=== PATIENT | female | born 1995 | race Caucasian/White ===

== ENCOUNTER 2020-06-28 09:32 | Observation (INO) | payer BC ==
[2020-06-28 10:34] VITALS: BP 133/94; PULSE 107
[2020-06-28 10:40] LABS: Absolute Neutrophil Ct (ANC) 6.51 (1.4-6.9); BASOPHIL % 0.1 % (0.0-0.4); Basophil (Absolute #) 0.01 (0-0.4); Eosinophil % 0.6 % (0.00-5.0); Eosinophil (Absolute #) 0.05 (0-0.5); Hematocrit 36.2 % (35-47); Hemoglobin 11.9 gm/dl (12.0-16.0); Lymphocyte (Absolute #) 1.42 (1.0-4.6); Lymphocytes % 16.4 % (24.0-44.0); Mean Cell Volume 88.3 fl (78-100); Mean Corpuscular Hgb Concent. 32.9 g/dl (32-36); Mean Platelet Volume 10.9 fl (7.5-11.0); Monocyte (Absolute #) 0.66 (0.0-1.3); Monocytes % 7.6 % (0.0-12.0); Neutrophil % 75.3 % (36.0-66.0); Platelet Count 171 K/mm3 (150-450); Red Cell Distribution Width 13.3 % (11.5-14.0); White Blood Count 8.7 K/mm3 (4.0-10.5)
[2020-06-28 11:06] LABS: ALBUMIN 3.7 g/dL (3.5-5.0); ALKALINE PHOSPHATASE 75 U/L (38-126); ANION GAP 9.2 MEQ/L (5-15); BLOOD UREA NITROGEN 7 mg/dL (7-17); CHLORIDE 107 mmol/L (98-107); Calcium 9.4 mg/dL (8.4-10.2); Carbon Dioxide 22 mmol/L (22-30); Creatinine 1 0.52 mg/dL (0.52-1.04); EST GLOMERULAR FILTRATION RATE > 60.0 ML/MIN; Glucose 109 mg/dL (74-106); Potassium 3.9 mmol/L (3.5-5.1); SGOT/AST 20 U/L (14-36); SGPT/ALT 13 U/L (0-35); SODIUM 134 mmol/L (137-145); Total Protein 7.1 g/dL (6.3-8.2)
[2020-06-28 17:54] LABS: Creatinine, Urine Random 160.8 mg/dl (30-125)
== END 2020-06-28 11:50 | disposition home or self-care (01) ==
LOC: WHC 09:32 → OB 09:56
PROVIDERS: ADMIT Obstetrics & Gynecology; ATTEND Obstetrics & Gynecology
DX: O13.3 Gestational [pregnancy-induced] hypertension without significant proteinuria, third trimester (principal); Z3A.35 35 weeks gestation of pregnancy
CPT/HCPCS: 36415; 59025; 80053; 82570; 84156; 84550; 85025; 87081; G0378; 59425; 81002

== ENCOUNTER 2020-06-30 10:38 | Inpatient (IN) | payer BC ==
[2020-06-30 11:38] LABS: Appearance CLEAR (CLEAR); Bilirubin NEGATIVE (NEGATIVE); Blood NEGATIVE Ery/ul (0-5); Epithelial Cells RARE /HPF (FEW); Glucose NEGATIVE (NEGATIVE); Ketones NEGATIVE (NEGATIVE); Leukocyte Esterase NEGATIVE (NEGATIVE); Nitrite NEGATIVE (NEGATIVE); Protein,Urine Dip NEGATIVE (Negative); Specific Gravity 1.002 (1.005-1.025); Urobilinogen NEGATIVE mg/dL (0-1)
[2020-06-30 11:40] LABS: Bacteria NONE SEEN /HPF (NEGATIVE); WBC NONE SEEN /HPF (0-5)
[2020-06-30 12:06] LABS: Amphetamine,Urine NEGATIVE (NEGATIVE); Barbiturate,Urine NEGATIVE (NEGATIVE); Benzodiazepine,Urine NEGATIVE (NEGATIVE); Cocaine,Urine NEGATIVE (NEGATIVE); Methadone,Urine NEGATIVE (NEGATIVE); Opiate,Urine NEGATIVE (NEGATIVE); PCP,Urine NEGATIVE (NEGATIVE); THC,Urine NEGATIVE (NEGATIVE)
[2020-06-30 12:15] LABS: Absolute Neutrophil Ct (ANC) 5.84 (1.4-6.9); BASOPHIL % 0.1 % (0.0-0.4); Basophil (Absolute #) 0.01 (0-0.4); Eosinophil % 0.4 % (0.00-5.0); Eosinophil (Absolute #) 0.03 (0-0.5); Hematocrit 37.5 % (35-47); Hemoglobin 12.2 gm/dl (12.0-16.0); Lymphocyte (Absolute #) 1.29 (1.0-4.6); Lymphocytes % 16.5 % (24.0-44.0); Mean Cell Volume 88.7 fl (78-100); Mean Corpuscular Hemoglobin 28.8 pg (26-32); Mean Corpuscular Hgb Concent. 32.5 g/dl (32-36); Mean Platelet Volume 10.7 fl (7.5-11.0); Monocyte (Absolute #) 0.65 (0.0-1.3); Monocytes % 8.3 % (0.0-12.0); Neutrophil % 74.7 % (36.0-66.0); Platelet Count 177 K/mm3 (150-450); Red Blood Count 4.23 M/mm3 (4.1-5.4); Red Cell Distribution Width 13.4 % (11.5-14.0); White Blood Count 7.8 K/mm3 (4.0-10.5)
[2020-06-30 12:35] LABS: ALBUMIN 3.7 g/dL (3.5-5.0); ALKALINE PHOSPHATASE 83 U/L (38-126); BLOOD UREA NITROGEN 9 mg/dL (7-17); Calcium 9.3 mg/dL (8.4-10.2); Carbon Dioxide 24 mmol/L (22-30); Creatinine 1 0.56 mg/dL (0.52-1.04); EST GLOMERULAR FILTRATION RATE > 60.0 ML/MIN; Glucose 84 mg/dL (74-106); Potassium 4.2 mmol/L (3.5-5.1); SGOT/AST 19 U/L (14-36); SGPT/ALT 12 U/L (0-35); SODIUM 135 mmol/L (137-145); Total Protein 7.1 g/dL (6.3-8.2); Uric Acid 3.6 mg/dL (2.6-6.0)
[2020-06-30 12:36] LABS: CHLORIDE 106 mmol/L (98-107)
[2020-06-30 12:39] LABS: Creatinine, Urine Random 19.1 mg/dl (30-125)
[2020-06-30 12:41] LABS: ANION GAP 9.2 MEQ/L (5-15)
[2020-06-30] MEDS: TYLENOL EXTRA STRENGTH 500 MG PO PRN (13:55)
[2020-06-30] MEDS ORDERED: STADOL 2 MG IV ONE (16:01)
[2020-06-30] MEDS ORDERED: SOD CITRATE-CITRIC ACID SOLN PO ONE (18:50)
[2020-06-30] MEDS ORDERED: Lactated Ringers 1,000 ML IV ONE (18:50)
[2020-06-30] MEDS ORDERED: Lactated Ringers 1,000 ML IV SCH (19:00)
[2020-06-30] MEDS ORDERED: Pepcid 20 MG VIAL IV SCH (19:00)
[2020-06-30] MEDS ORDERED: Reglan 10 MG/2 ML IV SCH (19:00)
[2020-06-30] MEDS ORDERED: CEFAZOLIN 2 GM-D5W BAG** 2 GM/50 ML ML IV SCH (19:00)
[2020-06-30 19:31] LABS: INR 1.05 (0.8-3.0); PROTIME 11.9 SECONDS (9.95-12.35)
[2020-06-30 19:34] LABS: PTT 23.1 SECONDS (25.3-37.0)
[2020-06-30] MEDS: Lactated Ringers 1,000 ML IV SCH (19:34)
[2020-06-30] MEDS: Magnesium Sulfate 40 Gm/1000 Ml H2O Premix*** 1,000 ML IV SCH (19:34)
[2020-06-30] MEDS ORDERED: Celestone Soluspan 6MG/ML IM ONE (19:53)
[2020-06-30] MEDS ORDERED: BRETHINE 1 MG/ML SQ PRN (20:27)
[2020-06-30] MEDS ORDERED: PITOCIN 30 UNITS/ LR 500 ML 30 UNITS/500 ML IV.SOLN. IV SCH (20:30)
[2020-06-30 20:46] LABS: Appearance CLEAR (CLEAR); Bilirubin NEGATIVE (NEGATIVE); Blood NEGATIVE Ery/ul (0-5); Glucose NEGATIVE (NEGATIVE); Ketones NEGATIVE (NEGATIVE); Leukocyte Esterase NEGATIVE (NEGATIVE); Nitrite NEGATIVE (NEGATIVE); Protein,Urine Dip NEGATIVE (Negative); Specific Gravity 1.004 (1.005-1.025); Urobilinogen NEGATIVE mg/dL (0-1)
[2020-06-30] MEDS: Tums EX 750 MG PO PRN (21:31)
[2020-07-01] MEDS ORDERED: XYLOCAINE 1% HCL 20 ML MDV IJ PRN (05:07)
[2020-07-01] MEDS: Lactated Ringers 1,000 ML IV SCH ×3 (05:12→20:56)
[2020-07-01] MEDS: TYLENOL EXTRA STRENGTH 500 MG PO PRN ×2 (05:12→21:38)
[2020-07-01] MEDS: Tums EX 750 MG PO PRN ×2 (05:13→21:44)
[2020-07-01] MEDS ORDERED: PITOCIN 30 UNITS/ LR 500 ML 30 UNITS/500 ML IV.SOLN. IV SCH (05:30)
[2020-07-01] MEDS ORDERED: Ephedrine Sulfate 50 MG/ML IV PRN (08:36)
[2020-07-01] MEDS ORDERED: OB EPIDURAL NAROPIN/SUFENTANIL IN NACL EPIDURAL PRN (08:36)
[2020-07-01] MEDS ORDERED: FLUZONE QUAD 2020-2021 SYRINGE IM ONE (12:00)
[2020-07-01] MEDS ORDERED: Mylicon 80MG PO PRN (14:07)
[2020-07-01] MEDS ORDERED: LANSINOH 40 GM TOP PRN (14:07)
[2020-07-01] MEDS ORDERED: TUCKS TP PRN (14:07)
[2020-07-01] MEDS ORDERED: Dermoplast Spray TP PRN (14:07)
[2020-07-01] MEDS: Magnesium Sulfate 40 Gm/1000 Ml H2O Premix*** 1,000 ML IV SCH (15:01)
[2020-07-01] MEDS: MOTRIN 400 MG PO PRN (20:15)
[2020-07-01] MEDS ORDERED: Colace 100 MG ONE (21:34)
[2020-07-01] MEDS: Colace 100 MG PO SCH (21:42)
[2020-07-02] MEDS: MOTRIN 400 MG PO PRN ×2 (02:06→20:22)
[2020-07-02] MEDS: Tums EX 750 MG PO PRN (02:07)
[2020-07-02 07:18] LABS: Absolute Neutrophil Ct (ANC) 6.83 (1.4-6.9); BASOPHIL % 0.1 % (0.0-0.4); Basophil (Absolute #) 0.01 (0-0.4); Eosinophil % 0.4 % (0.00-5.0); Eosinophil (Absolute #) 0.04 (0-0.5); Hematocrit 35.5 % (35-47); Hemoglobin 11.3 gm/dl (12.0-16.0); Lymphocytes % 20.6 % (24.0-44.0); Mean Corpuscular Hgb Concent. 31.8 g/dl (32-36); Mean Platelet Volume 10.9 fl (7.5-11.0); Monocyte (Absolute #) 0.83 (0.0-1.3); Monocytes % 8.5 % (0.0-12.0); Neutrophil % 70.4 % (36.0-66.0); Platelet Count 160 K/mm3 (150-450); Red Cell Distribution Width 13.6 % (11.5-14.0); White Blood Count 9.7 K/mm3 (4.0-10.5)
[2020-07-02] MEDS: TYLENOL EXTRA STRENGTH 500 MG PO PRN (08:46)
[2020-07-02] MEDS: FERREX 150 PO SCH (09:00)
[2020-07-02] MEDS: Colace 100 MG PO SCH ×2 (09:00→22:16)
--- NOTE | 2020-07-02 09:26 | PCM.NOTE ---
Date and Time: 07/02/20921 Subjective Assessment: ppd 1 pt resting in bed and doing well states occasional feeling foggy however denies headache at this time. pt currently on mgso4. pt noted having labile bp vss afebrile abd; soft uterus; firm lochia; mild ext; no clubbing cyanosis or edema a/p sp ppd 1 with preeclampsia with severe feature will discontinue mgso4 at noon today will continue monitor bp will consider starting on bp medication if bp 160/100 will anticipate discharge tomorrow OBJECTIVE DATA Vital Signs: Vital Signs - 24 hr Temp Pulse Resp BP BP Pulse Ox 07/02/20 07:00 78 98/57 07/02/20 06:00 72 113/68 07/02/20 05:00 100 H 101/55 07/02/20 04:00 77 98/53 07/02/20 03:00 77 122/75 07/02/20 02:00 97.9 F 82 20 125/81 125/81 98 07/02/20 01:00 91 H 127/64 07/02/20 00:00 82 99/52 07/01/20 23:00 82 124/79 07/01/20 22:00 91 H 122/74 07/01/20 21:00 93 H 123/75 07/01/20 20:00 98.4 F 93 H 18 141/87 141/87 98 07/01/20 19:00 101 H 129/77 07/01/20 18:00 108 H 132/79 07/01/20 17:00 110 H 143/83 07/01/20 16:00 108 H 18 106/55 106/55 07/01/20 15:05 98.2 F 118 H 18 112/68 07/01/20 15:00 118 H 112/68 07/01/20 14:05 111 H 18 122/69 07/01/20 14:00 111 H 18 122/69 122/69 07/01/20 13:50 109 H 18 122/60 07/01/20 13:35 118 H 18 123/57 07/01/20 13:30 117 H 18 136/66 07/01/20 13:15 112 H 18 105/56 07/01/20 13:00 96 H 18 105/56 07/01/20 12:45 103 H 18 100 07/01/20 12:30 107 H 18 99 07/01/20 12:15 102 H 18 97/53 07/01/20 12:00 101 H 18 105/52 07/01/20 11:45 108 H 18 112/58 100 07/01/20 11:30 101 H 18 97 07/01/20 11:15 95 H 18 118/58 98 07/01/20 11:00 99 H 18 102/53 99 07/01/20 10:45 88 18 104/56 99 07/01/20 10:30 91 H 18 99 07/01/20 10:15 89 18 109/58 99 07/01/20 10:00 89 18 109/58 99 07/01/20 09:45 102 H 18 102/58 99 07/01/20 09:30 93 H 18 133/80 99 Pain Assessment - Last Documented Pain Intensity [Anterior/ 6 Posterior] Pain Intensity 4 Pain Scale Used 0-10 Pain Scale Intake and Output: Intake & Output 06/29/20 06/30/20 07/01/20 07/02/20 11:59 11:59 11:59 11:59 Intake Total 3752 5246 Output Total 5673 7100 Balance -1873 -1854 Weight 97.976 kg 97.976 kg Lab Results: Lab Results-Last 24 Hours 07/01/20 07/01/20 07/02/20 Range/Units 13:00 19:15 01:13 WBC (4.0-10.5) K/mm3 RBC (4.1-5.4) M/mm3 Hgb (12.0-16.0) gm/dl Hct (35-47) % MCV (78-100) fl MCH (26-32) pg MCHC (32-36) g/dl RDW (11.5-14.0) % Plt Count (150-450) K/mm3 MPV (7.5-11.0) fl Gran % (36.0-66.0) % Eos # (Auto) (0-0.5) Absolute Lymphs (auto) (1.0-4.6) Absolute Monos (auto) (0.0-1.3) Lymphocytes % (24.0-44.0) % Monocytes % (0.0-12.0) % Eosinophils % (0.00-5.0) % Basophils % (0.0-0.4) % Absolute Granulocytes (1.4-6.9) Basophils # (0-0.4) Magnesium 5.2 H* 4.8 H 4.9 H (1.6-2.3) mg/dL 07/02/20 07/02/20 Range/Units 07:17 07:17 WBC 9.7 (4.0-10.5) K/mm3 RBC 3.90 L (4.1-5.4) M/mm3 Hgb 11.3 L (12.0-16.0) gm/dl Hct 35.5 (35-47) % MCV 91.0 (78-100) fl MCH 29.0 (26-32) pg MCHC 31.8 L (32-36) g/dl RDW 13.6 (11.5-14.0) % Plt Count 160 (150-450) K/mm3 MPV 10.9 (7.5-11.0) fl Gran % 70.4 H (36.0-66.0) % Eos # (Auto) 0.04 (0-0.5) Absolute Lymphs (auto) 2.00 (1.0-4.6) Absolute Monos (auto) 0.83 (0.0-1.3) Lymphocytes % 20.6 L (24.0-44.0) % Monocytes % 8.5 (0.0-12.0) % Eosinophils % 0.4 (0.00-5.0) % Basophils % 0.1 (0.0-0.4) % Absolute Granulocytes 6.83 (1.4-6.9) Basophils # 0.01 (0-0.4) Magnesium 5.2 H* (1.6-2.3) mg/dL Multi-Disciplinary Progress Notes: Multi-Disciplinary Progress Notes 07/01/20 14:07 Respiratory Note by Iliana Kearns 20 MIN POST DELIVERY CALLED BACK TO [facility] , STARTED TO RETRACT. PPV WITH 21 5 O2 GIVEN PERIDOCALLY OVER NEXT 15 MIN. PT WOB GREATLY IMPROVED Initialized on 07/01/20 14:07 - END OF NOTE
[2020-07-02] MEDS ORDERED: Adacel Vial IM ONE (12:00)
[2020-07-03] MEDS: TYLENOL EXTRA STRENGTH 500 MG PO PRN (00:48)
[2020-07-03] MEDS: Tums EX 750 MG PO PRN (00:49)
--- NOTE | 2020-07-03 07:55 | PCM.NOTE ---
Date and Time: 07/03/20 0753 Subjective Assessment: ppd 2 pt resting in bed and doing well without issue or complaints. denies crane or visual disturbance vss afebrile abd; soft uterus; firm lochia; mild a/p sp ppd 2 dc home today fu office 2 wks for eval of bp OBJECTIVE DATA Vital Signs: Vital Signs - 24 hr Temp Pulse Resp BP BP Pulse Ox 07/03/20 04:00 98.7 F 65 16 123/80 99 07/03/20 02:00 97.9 F 66 18 120/79 99 07/02/20 20:00 98.5 F 72 20 122/82 99 07/02/20 14:20 98.2 F 83 18 135/84 99 07/02/20 11:00 92 H 127/83 07/02/20 10:00 99 H 131/77 07/02/20 09:00 91 H 149/90 07/02/20 08:00 98.1 F 84 18 176/83 176/83 99 Pain Assessment - Last Documented Pain Intensity [Anterior/ 5 Posterior] Pain Intensity 5 Pain Scale Used 0-10 Pain Scale Intake and Output: Intake & Output 06/30/20 07/01/20 07/02/20 07/03/20 11:59 11:59 11:59 11:59 Intake Total 3752 5606 1850 Output Total 5622 8400 Balance -4155 -5444 1850 Weight 97.976 kg 97.976 kg Lab Results: Lab Results-Last 24 Hours 07/02/20 Range/Units 07:17 Magnesium 5.2 H* (1.6-2.3) mg/dL
--- NOTE | 2020-07-03 08:00 | PCM.DS ---
Discharge Summary Date of Admission: 06/30/20 10:38 Date of Discharge: jul 03, 2020 Admitting Physician: ANANTH MONSIVAIS DO Consults: Consults on Case 06/30/20 18:51 Notify Physician OF ADMISSION 06/30/20 19:04 Notify Physician ROUTINE Primary Care Provider: STEF BOWDEN Allergies Allergies No Known Drug Allergies Allergy (Verified 06/30/20 21:45) Hospital Summary - Hospital Course Hospital Course: pt noted being 36 wks and had co severe headache starting in the am 10/10 in severity not relieved with extra strength tylenol associated with vomiting and visual disturbance. presented to labor and delivery and pi labs drawn and was noted having elevated prot/cr ratio of .73 compared to being .04 two days prior. all other labs were normal. pt was given stadol 1mg dose and after several hours had continued severe headache. [facility] [place] and it was determined that if continued headache that she should be delivered at this time. pt was subsequently started on pitocin and delivered live baby girl on jul 01 without complication. pt had mgso4 started prior to delivery and was exteded to 24 hours after delivery. during period, pt did well and only had one elevation of bp. at this time all labs were normal and pt at this time stable for discharge. pt was advised to fu in office in 2 wks for bp check. all questions answered to her satisfaction. - Vitals & Intake/Output Vital Signs: Vital Signs Temperature 98.7 F 07/03/20 04:00 Pulse Rate 65 07/03/20 04:00 Respiratory Rate 16 07/03/20 04:00 Blood Pressure 123/80 07/03/20 04:00 O2 Sat by Pulse Oximetry 99 07/03/20 04:00 Intake & Output: Intake & Output 06/30/20 07/01/20 07/02/20 07/03/20 11:59 11:59 11:59 11:59 Intake Total 3756 5606 1850 Output Total 5688 8400 Balance -3873 -2795 1850 Weight 97.976 kg 97.976 kg - Lab Result Diagrams: 07/02/20 07:17 06/30/20 12:10 Lab Results-Last 24 Hrs: Lab Results-Last 24 Hours 07/02/20 Range/Units 07:17 Magnesium 5.2 H* (1.6-2.3) mg/dL Micro Results-Entire Visit: Microbiology 06/30/20 20:30 Urine Culture - Final Catherized NO GROWTH - Procedures and Test Procedures and Tests throughout Hospitalization: Therapy Orders & Screens 07/01/20 13:39 Standby ROUTINE Comment: Diagnosis: pre eclampsia - Discharge Disposition: Home, Self-Care Condition: Stable Prescriptions: No Action Metformin HCl 500 mg [Glucophage 500 MG] 500 mg PO BID Aspirin [Aspirin EC] 81 mg PO DAILY Vits W-Ca,Fe,FA(<1Mg) [] 1 tab PO DAILY Follow up with: STEF BOWDEN [Primary Care Provider] -
--- NOTE | 2020-07-03 08:01 | PCM.DCORD ---
- Discharge Discharge Date: 07/03/20 Disposition: Home, Self-Care Condition: Stable Prescriptions: No Action Metformin HCl 500 mg [Glucophage 500 MG] 500 mg PO BID Aspirin [Aspirin EC] 81 mg PO DAILY Vits W-Ca,Fe,FA(<1Mg) [] 1 tab PO DAILY Follow up with: STEF BOWDEN [Primary Care Provider] - ANANTH MONSIVAIS DO [ACTIVE STAFF] - 2 weeks (should fu in office in 2 wks for bp check preeclmapsia precuations given to pt)
[2020-07-03] MEDS: MOTRIN 400 MG PO PRN (08:16)
[2020-07-03] MEDS: FERREX 150 PO SCH (09:27)
[2020-07-03] MEDS: Colace 100 MG PO SCH (09:29)
[2020-07-03 11:38] VITALS: BP 118/77; PULSE 73; O2SAT 98
== END 2020-07-03 14:35 | disposition home or self-care (01) | DRG 807 ==
LOC: OB 10:38 → OBSVTOIN 10:38
PROVIDERS: ADMIT Obstetrics & Gynecology; ATTEND Obstetrics & Gynecology
PROC: 10E0XZZ Delivery of Products of Conception, External Approach (ICD-10-PCS; principal; 2020-07-01)
DX: O14.14 Severe pre-eclampsia complicating childbirth (principal); Z37.0 Single live birth; Z3A.36 36 weeks gestation of pregnancy
CPT/HCPCS: 36415; 59400; 80053; 80307; 81001; 81003; 82570; 83735; 84156; 84550; 85025; 85610; 85730; 87086; 90471; 90715; 94799; G0378; J0595; J0702; J2590; J2795; A9270-GY

== ENCOUNTER 2021-06-11 16:46 | Emergency (ER) | payer BC ==
[2021-06-11 18:38] LABS: Absolute Neutrophil Ct (ANC) 5.61 (1.4-6.9); BASOPHIL % 0.1 % (0.0-0.4); Basophil (Absolute #) 0.01 (0-0.4); Eosinophil % 0.8 % (0.00-5.0); Eosinophil (Absolute #) 0.07 (0-0.5); Hematocrit 35.3 % (35-47); Hemoglobin 11.9 gm/dl (12.0-16.0); Mean Cell Volume 87.4 fl (78-100); Mean Corpuscular Hemoglobin 29.5 pg (26-32); Mean Corpuscular Hgb Concent. 33.7 g/dl (32-36); Mean Platelet Volume 9.6 fl (7.5-11.0); Monocyte (Absolute #) 0.67 (0.0-1.3); Monocytes % 8.1 % (0.0-12.0); Platelet Count 205 K/mm3 (150-450); Red Blood Count 4.04 M/mm3 (4.1-5.4); Red Cell Distribution Width 12.4 % (11.5-14.0); White Blood Count 8.3 K/mm3 (4.0-10.5)
--- NOTE | 2021-06-11 18:41 | ERPHSYRPT ---
- History of Present Illness Time Seen by Provider: 06/11/21 17:55 Source: patient Exam Limitations: no limitations Patient Subjective Stated Complaint: PT HERE FOR LOWER BACK PAIN THAT GOES TO HIPS SINCE YESTERDAY AT 1200.SHE WENT TO COVERED BRIDGE AND WALKED AROUND, SHE PASSED A CLOT YESTERDAY AND HAD SOME SPOTTING TODAY, SHE IS 13 WEEKS . 4 PARA 2 Triage Nursing Assessment: PT ALERT, WALKED IN, RESP EASY, SKIN W/P/D , FACE MA SK IN PLACE, ABD SOFT, Physician History: Patient is a 25-year-old female G5, P2 M2 currently 13 weeks presents to our ED for evaluation of low back pain that radiates to her hip. Patient states that she was ambulating yesterday and later observed a blood clot passed in her vagina. The blood clot was mixed with mucus which she believes may have been a mucous plug. No trauma. No fever. No nausea or vomiting. No diarrhea. No rash. Symptoms are mild to moderate in intensity. No specific worsening improving factors. Patient called her OB physician regarding her concerns and office staff directed patient to come to our ED for evaluation. Patient is ot [facility] healthy. She voices no other complaints or concerns at this time. Timing/Duration: yesterday Severity: moderate Modifying Factors: Improves With: nothing Associated Symptoms: denies symptoms Allergies/Adverse Reactions: No Known Drug Allergies Allergy (Verified 06/30/20 21:45) Home Medications: Aspirin [Aspirin EC] 81 mg PO DAILY 06/28/20 [History] Metformin HCl 500 mg [Glucophage 500 MG] 500 mg PO BID 06/28/20 [History] Vits W-Ca,Fe,FA(<1Mg) [] 1 tab PO DAILY 06/28/20 [History] Hx Influenza Vaccination/Date Given: No Hx Pneumococcal Vaccination/Date Given: No Immunizations Up to Date: Yes Travel Risk - International Travel Have you traveled outside of the country in past 3 weeks: No - Coronavirus Screening Are you exhibiting any of the following symptoms?: No Close contact with a COVID-19 positive Pt in past 14-21 Days: No - Vaccine Status Have you recieved a Covid-19 vaccination: No - Review of Systems Constitutional: No Symptoms, No Fever, No Chills Eyes: No Symptoms Ears, Nose, & Throat: No Symptoms Respiratory: No Symptoms, No Cough, No Dyspnea Cardiac: No Symptoms, No Chest Pain, No Edema, No Syncope Abdominal/Gastrointestinal: No Symptoms, No Abdominal Pain, No Nausea, No V omiting, No Diarrhea Genitourinary Symptoms: No Symptoms, No Dysuria Musculoskeletal: No Symptoms, No Back Pain, No Neck Pain Skin: No Symptoms, No Rash Neurological: No Symptoms, No Dizziness, No Focal Weakness, No Sensory Changes Psychological: No Symptoms Endocrine: No Symptoms Hematologic/Lymphatic: No Symptoms Immunological/Allergic: No Symptoms All Other Systems: Reviewed and Negative - Past Medical History Pertinent Past Medical History: Yes Neurological History: Seizures ENT History: No Pertinent History Cardiac History: No Pertinent History Respiratory History: No Pertinent History Endocrine Medical History: No Pertinent History Musculoskeletal History: Fractures, Other GI Medical History: No Pertinent History History: No Pertinent History Female Reproductive Disorders: Other Other Medical History: R stress fracture of the proximal tibia RIGHT ANKLE AND PLATE AND 10 SCREWS RIGHT KNEE SURGERY. 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 ABDNORML PAP AND WENT AND DID LEAP PROCEDURE 2010 OR 2011. LABOR, LAST - Past Surgical History Past Surgical History: Yes Neuro Surgical History: No Pertinent History Cardiac: No Pertinent History Respiratory: No Pertinent History Gastrointestinal: No Pertinent History Musculoskeletal: Other Female Surgical History: Other Other Surgical History: R stress fracture of the proximal tibia RIGHT ANKLE AND PLATE AND 10 SCREWS RIGHT KNEE SURGERY. 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 ABDNORML PAP AND WENT AND DID LEAP PROCEDURE 2010 OR 2011 - Social History Smoking Status: Never smoker Exposure to second hand smoke: No Drug Use: none Patient Lives Alone: No - Female History Hx Last Menstrual Period: MARCH 07 Hx Now: Yes Expected Date of Delivery: 12/15/21 - Nursing Vital Signs Nursing Vital Signs: Initial Vital Signs Temperature 97.3 F 06/11/21 17:48 Pulse Rate 85 06/11/21 17:48 Blood Pressure 118/85 06/11/21 17:48 O2 Sat by Pulse Oximetry 99 06/11/21 17:48 Pain Scale Pain Intensity 0 - Physical Exam General Appearance: no apparent distress, alert Eye Exam: PERRL/EOMI, eyes nml inspection Ears, Nose, Throat Exam: normal ENT inspection, TMs normal, pharynx normal, moist mucous membranes Neck Exam: normal inspection, non-tender, supple, full range of motion Respiratory Exam: normal breath sounds, lungs clear, airway intact, No respiratory distress Cardiovascular Exam: regular rate/rhythm, normal heart sounds, normal peripheral pulses Gastrointestinal/Abdomen Exam: soft, normal bowel sounds, No tenderness, No mass Pelvic Exam: normal external exam, other (No foul odor.), No adnexal tenderness, No adnexal mass, No cervical motion tenderness, No vaginal bleeding, No uterine tenderness, No vaginal discharge Back Exam: normal inspection, normal range of motion, No CVA tenderness, No vertebral tenderness Extremity Exam: normal inspection, normal range of motion, pelvis stable Neurologic Exam: alert, oriented x 3, cooperative, normal mood/affect, nml cerebellar function, nml station & gait, sensation nml, No motor deficits Skin Exam: normal color, warm, dry, No rash Lymphatic Exam: No adenopathy SpO2 Interpretation: normal SpO2: 99 O2 Delivery: Room Air Ordered Tests: Active Orders 24 hr Category Date Time Status OB LIMITED [US] Stat Exams 06/11/21 19:29 Taken CBC W DIFF Stat Lab 06/11/21 18:19 Completed CMP Stat Lab 06/11/21 18:30 Completed HCG, Quantitative (Inhouse) Stat Lab 06/11/21 20:16 Completed UA W/RFX UR CULTURE Stat Lab 06/11/21 18:22 Completed Wet Prep Stat Lab 06/11/21 19:40 Completed Lab/Rad Data: Laboratory Result Diagrams 06/11/21 18:19 06/11/21 18:30 Laboratory Results 06/11/21 06/11/21 06/11/21 Range/Units Unknown 20:16 19:40 WBC (4.0-10.5) K/mm3 RBC (4.1-5.4) M/mm3 Hgb (12.0-16.0) gm/dl Hct (35-47) % MCV (78-100) fl MCH (26-32) pg MCHC (32-36) g/dl RDW (11.5-14.0) % Plt Count (150-450) K/mm3 MPV (7.5-11.0) fl Gran % (36.0-66.0) % Eos # (Auto) (0-0.5) Absolute Lymphs (auto) (1.0-4.6) Absolute Monos (auto) (0.0-1.3) Lymphocytes % (24.0-44.0) % Monocytes % (0.0-12.0) % Eosinophils % (0.00-5.0) % Basophils % (0.0-0.4) % Absolute Granulocytes (1.4-6.9) Basophils # (0-0.4) Sodium (137-145) mmol/L Potassium (3.5-5.1) mmol/L Chloride (98-107) mmol/L Carbon Dioxide (22-30) mmol/L Anion Gap (5-15) MEQ/L BUN (7-17) mg/dL Creatinine (0.52-1.04) mg/dL Estimated GFR ML/MIN Glucose (74-106) mg/dL Calcium (8.4-10.2) mg/dL Total Bilirubin (0.2-1.3) mg/dL AST (14-36) U/L ALT (0-35) U/L Alkaline Phosphatase (38-126) U/L Serum Total Protein (6.3-8.2) g/dL Albumin (3.5-5.0) g/dL Beta HCG, Quant 38982 mIU/ml Urine Color (YELLOW) Urine Appearance (CLEAR) Urine pH (5-6) Ur Specific [place] (1.005-1.025) Urine Protein (Negative) Urine Ketones (NEGATIVE) Urine Blood (0-5) Timmy/ul Urine Nitrite (NEGATIVE) Urine Bilirubin (NEGATIVE) Urine Urobilinogen (0-1) mg/dL Ur Leukocyte Esterase (NEGATIVE) Urine WBC (Auto) (0-5) /HPF Urine RBC (Auto) (0-2) /HPF U Epithel Cells (Auto) (FEW) /HPF Urine Mucus (Auto) (NEGATIVE) /HPF Urine Culture Reflexed (NO) Urine Glucose (NEGATIVE) mg/dL WBC (Wet Prep) Few RBC (Wet Prep) None Seen Epi Cells (Wet Prep) Moderate Bacteria (Wet Prep) Few Clue Cells (Wet Prep) None Seen Trichomonas (Wet Prep) None Seen Budding Yeast (Wet Prp) None Seen Chlamydia DNA Probe NOT DETECTED (NEGATIVE) N.gonorrhoeae DNA Probe NOT DETECTED (NEGATIVE) ABO Group Rh Factor Antibody Screen (NEGATIVE) 10/18/21 10/18/21 10/18/21 Range/Units 18:30 18:30 18:22 WBC (4.0-10.5) K/mm3 RBC (4.1-5.4) M/mm3 Hgb (12.0-16.0) gm/dl Hct (35-47) % MCV (78-100) fl MCH (26-32) pg MCHC (32-36) g/dl RDW (11.5-14.0) % Plt Count (150-450) K/mm3 MPV (7.5-11.0) fl Gran % (36.0-66.0) % Eos # (Auto) (0-0.5) Absolute Lymphs (auto) (1.0-4.6) Absolute Monos (auto) (0.0-1.3) Lymphocytes % (24.0-44.0) % Monocytes % (0.0-12.0) % Eosinophils % (0.00-5.0) % Basophils % (0.0-0.4) % Absolute Granulocytes (1.4-6.9) Basophils # (0-0.4) Sodium 136 L (137-145) mmol/L Potassium 3.6 (3.5-5.1) mmol/L Chloride 103 (98-107) mmol/L Carbon Dioxide 24 (22-30) mmol/L Anion Gap 12.1 (5-15) MEQ/L BUN 8 (7-17) mg/dL Creatinine 0.60 (0.52-1.04) mg/dL Estimated GFR > 60.0 ML/MIN Glucose 84 (74-106) mg/dL Calcium 9.5 (8.4-10.2) mg/dL Total Bilirubin 0.40 (0.2-1.3) mg/dL AST 19 (14-36) U/L ALT 13 (0-35) U/L Alkaline Phosphatase 51 (38-126) U/L Serum Total Protein 6.9 (6.3-8.2) g/dL Albumin 4.0 (3.5-5.0) g/dL Beta HCG, Quant mIU/ml Urine Color STRAW (YELLOW) Urine Appearance CLEAR (CLEAR) Urine pH 6.0 (5-6) Ur Specific [place] 1.005 (1.005-1.025) Urine Protein NEGATIVE (Negative) Urine Ketones NEGATIVE (NEGATIVE) Urine Blood NEGATIVE (0-5) Timmy/ul Urine Nitrite NEGATIVE (NEGATIVE) Urine Bilirubin NEGATIVE (NEGATIVE) Urine Urobilinogen NEGATIVE (0-1) mg/dL Ur Leukocyte Esterase NEGATIVE (NEGATIVE) Urine WBC (Auto) NONE (0-5) /HPF Urine RBC (Auto) NONE (0-2) /HPF U Epithel Cells (Auto) NONE (FEW) /HPF Urine Mucus (Auto) SLIGHT (NEGATIVE) /HPF Urine Culture Reflexed NO (NO) Urine Glucose NEGATIVE (NEGATIVE) mg/dL WBC (Wet Prep) RBC (Wet Prep) Epi Cells (Wet Prep) Bacteria (Wet Prep) Clue Cells (Wet Prep) Trichomonas (Wet Prep) Budding Yeast (Wet Prp) Chlamydia DNA Probe (NEGATIVE) N.gonorrhoeae DNA Probe (NEGATIVE) ABO Group A Rh Factor POSITIVE Antibody Screen NEGATIVE (NEGATIVE) 06/11/21 Range/Units 18:19 WBC 8.3 (4.0-10.5) K/mm3 RBC 4.04 L (4.1-5.4) M/mm3 Hgb 11.9 L (12.0-16.0) gm/dl Hct 35.3 (35-47) % MCV 87.4 (78-100) fl MCH 29.5 (26-32) pg MCHC 33.7 (32-36) g/dl RDW 12.4 (11.5-14.0) % Plt Count 205 (150-450) K/mm3 MPV 9.6 (7.5-11.0) fl Gran % 68.0 H (36.0-66.0) % Eos # (Auto) 0.07 (0-0.5) Absolute Lymphs (auto) 1.90 (1.0-4.6) Absolute Monos (auto) 0.67 (0.0-1.3) Lymphocytes % 23.0 L (24.0-44.0) % Monocytes % 8.1 (0.0-12.0) % Eosinophils % 0.8 (0.00-5.0) % Basophils % 0.1 (0.0-0.4) % Absolute Granulocytes 5.61 (1.4-6.9) Basophils # 0.01 (0-0.4) Sodium (137-145) mmol/L Potassium (3.5-5.1) mmol/L Chloride (98-107) mmol/L Carbon Dioxide (22-30) mmol/L Anion Gap (5-15) MEQ/L BUN (7-17) mg/dL Creatinine (0.52-1.04) mg/dL Estimated GFR ML/MIN Glucose (74-106) mg/dL Calcium (8.4-10.2) mg/dL Total Bilirubin (0.2-1.3) mg/dL AST (14-36) U/L ALT (0-35) U/L Alkaline Phosphatase (38-126) U/L Serum Total Protein (6.3-8.2) g/dL Albumin (3.5-5.0) g/dL Beta HCG, Quant mIU/ml Urine Color (YELLOW) Urine Appearance (CLEAR) Urine pH (5-6) Ur Specific [place] (1.005-1.025) Urine Protein (Negative) Urine Ketones (NEGATIVE) Urine Blood (0-5) Timmy/ul Urine Nitrite (NEGATIVE) Urine Bilirubin (NEGATIVE) Urine Urobilinogen (0-1) mg/dL Ur Leukocyte Esterase (NEGATIVE) Urine WBC (Auto) (0-5) /HPF Urine RBC (Auto) (0-2) /HPF U Epithel Cells (Auto) (FEW) /HPF Urine Mucus (Auto) (NEGATIVE) /HPF Urine Culture Reflexed (NO) Urine Glucose (NEGATIVE) mg/dL WBC (Wet Prep) RBC (Wet Prep) Epi Cells (Wet Prep) Bacteria (Wet Prep) Clue Cells (Wet Prep) Trichomonas (Wet Prep) Budding Yeast (Wet Prp) Chlamydia DNA Probe (NEGATIVE) N.gonorrhoeae DNA Probe (NEGATIVE) ABO Group Rh Factor Antibody Screen (NEGATIVE) - Progress Progress: improved Progress Note: Patient reassessed. She feels well. There is no vaginal bleeding or mucus discharge upon exam. Normal anatomy. Cervical os is closed. Viable fetus observed on ultrasound. hCG appears to be on point with gestational age. Wet prep negative. GC chlamydia negative. Patient's Rh+ no indication for RhoGam. Patient agrees to follow-up with her OB physician within 48 hours for reevaluation. She voices no other complaints or concerns at this time. 06/11/21 21:24 Case discussed with who agrees with disposition. No recommendations m taye. Portions of this note were created with voice recognition technology. There may be grammatical, spelling, punctuation or sound alike errors 06/11/21 21:27 Discussed with : Colt Will see patient in: office Counseled pt/family regarding: lab results, diagnosis, need for follow-up, rad results - Departure Departure Disposition: Home Clinical Impression: Threatened miscarriage Condition: Stable Critical Care Time: No Referrals: ANANTH MONSIVAIS DO [Primary Care Provider] - Additional Instructions: Discharge/Care Plan SANDOVAL LORENZO was seen on 06/11/21 in the Emergency Room. The patient was counseled regarding Diagnosis,Lab results, Imaging studies, need for follow up and when to return to the Emergency Room. Prescriptions given: Discharge Note I have spoken with the patient and/or caregivers. I have explained the patient's condition, diagnosis and treatment plan based on the information available to me at this time. I have answered the patient's and/or caregiver's questions and addressed any concerns. The patient and/or caregivers have as good understanding of the patient's diagnosis, condition and treatment plan as can be expected at this point. The vital signs have been stable. The patient's condition is stable and appropriate for discharge from the emergency department. The patient will pursue further outpatient evaluation with the primary care physician or other designated or consulting physician as outlined in the discharge instructions. The patient and/or caregivers are agreeable to this plan of care and follow-up instructions have been explained in detail. The patient and/or caregivers have received these instruction. The patient/and or caregivers are aware that any significant change in condition or worsening of symptoms should prompt an immediate return to this or the closest emergency department or call 911.
[2021-06-11 18:51] LABS: ALKALINE PHOSPHATASE 51 U/L (38-126); ANION GAP 12.1 MEQ/L (5-15); BLOOD UREA NITROGEN 8 mg/dL (7-17); CHLORIDE 103 mmol/L (98-107); Calcium 9.5 mg/dL (8.4-10.2); Carbon Dioxide 24 mmol/L (22-30); EST GLOMERULAR FILTRATION RATE > 60.0 ML/MIN; Glucose 84 mg/dL (74-106); Potassium 3.6 mmol/L (3.5-5.1); SGOT/AST 19 U/L (14-36); SGPT/ALT 13 U/L (0-35); SODIUM 136 mmol/L (137-145); Total Protein 6.9 g/dL (6.3-8.2)
[2021-06-11 18:59] LABS: Appearance CLEAR (CLEAR); Bilirubin NEGATIVE (NEGATIVE); Blood NEGATIVE Ery/ul (0-5); Glucose NEGATIVE (NEGATIVE); Ketones NEGATIVE (NEGATIVE); Leukocyte Esterase NEGATIVE (NEGATIVE); Mucus SLIGHT /HPF (NEGATIVE); Nitrite NEGATIVE (NEGATIVE); Protein,Urine Dip NEGATIVE (Negative); Specific Gravity 1.005 (1.005-1.025); Urobilinogen NEGATIVE mg/dL (0-1)
[2021-06-11 19:20] LABS: ABO TYPING A; Antibody Screen NEGATIVE (NEGATIVE); RH TYPING POSITIVE
[2021-06-11 19:50] LABS: Bacteria Few; Clue Cells None Seen; Trichomonas None Seen
[2021-06-11 19:51] LABS: Red Blood Cells None Seen; White Blood Cells Few; Yeast None Seen
[2021-06-11 20:25] LABS: CHLAMYDIA DNA NOT DETECTED (NEGATIVE); GC DNA Probe NOT DETECTED (NEGATIVE)
[2021-06-11 21:25] VITALS: O2SAT 99
[2021-06-11 21:39] VITALS: BP 110/62; PULSE 72
--- NOTE | 2021-06-12 08:36 | XRAY ---
Indication: Evaluate viability and cervical length. History of miscarriage. Limited OB ultrasound performed demonstrating single intrauterine with heart rate 165 BPM. Cervix closed measuring 4.5 cm in length. Comment: Preliminary report was given.
== END 2021-06-11 21:39 | disposition home or self-care (01) ==
LOC: ED 16:46
DX: O20.0 Threatened abortion (principal); Z3A.13 13 weeks gestation of pregnancy
CPT/HCPCS: 36415; 76815; 80053; 81001; 84702; 85025; 86850; 86900; 86901; 87210; 87491; 87591; 99284

== ENCOUNTER 2021-08-27 13:57 | Observation (INO) | payer BC ==
[2021-08-27 14:43] LABS: Appearance CLEAR (CLEAR); Bilirubin NEGATIVE (NEGATIVE); Blood NEGATIVE Ery/ul (0-5); Glucose NEGATIVE (NEGATIVE); Ketones NEGATIVE (NEGATIVE); Leukocyte Esterase NEGATIVE (NEGATIVE); Nitrite NEGATIVE (NEGATIVE); Protein,Urine Dip NEGATIVE (Negative); Specific Gravity 1.005 (1.005-1.025); Urobilinogen NEGATIVE mg/dL (0-1)
[2021-08-27 14:45] VITALS: BP 127/69; PULSE 104
[2021-08-27 14:54] LABS: Amphetamine,Urine NEGATIVE (NEGATIVE); Barbiturate,Urine NEGATIVE (NEGATIVE); Benzodiazepine,Urine NEGATIVE (NEGATIVE); Cocaine,Urine NEGATIVE (NEGATIVE); Methadone,Urine NEGATIVE (NEGATIVE); Opiate,Urine NEGATIVE (NEGATIVE); PCP,Urine NEGATIVE (NEGATIVE); THC,Urine NEGATIVE (NEGATIVE)
[2021-08-27 15:53] LABS: INFLUENZA A NEGATIVE (NEGATIVE); INFLUENZA B NEGATIVE (NEGATIVE); RESPIRATORY SYNCTIAL VIRUS NEGATIVE (Negative); SARS-CoV-2 Xpert Express NEGATIVE (NEGATIVE)
== END 2021-08-27 16:10 | disposition home or self-care (01) ==
LOC: OB 13:57 → UNDOADMOB 13:57 → MED SURG 13:57 → UNDODISOB 16:10
PROVIDERS: ADMIT Obstetrics & Gynecology; ATTEND Obstetrics & Gynecology
DX: Z34.82 Encounter for supervision of other normal pregnancy, second trimester (principal); Z3A.24 24 weeks gestation of pregnancy; Z20.828 Contact with and (suspected) exposure to other viral communicable diseases
CPT/HCPCS: 0241U; 80307; 81001; G0378

== ENCOUNTER 2021-08-28 11:52 | Observation (INO) | payer BC ==
[2021-08-28 12:26] VITALS: BP 113/73; PULSE 86
== END 2021-08-28 13:15 | disposition home or self-care (01) ==
LOC: OB 11:52
PROVIDERS: ADMIT Obstetrics & Gynecology; ATTEND Obstetrics & Gynecology
DX: Z34.82 Encounter for supervision of other normal pregnancy, second trimester (principal); Z3A.24 24 weeks gestation of pregnancy
CPT/HCPCS: G0378

== ENCOUNTER 2021-09-19 15:19 | Observation (INO) | payer BC ==
[2021-09-19] MEDS ORDERED: TYLENOL 325 MG PO PRN (15:45)
[2021-09-19] MEDS ORDERED: Zofran 4 MG/2 ML VIAL IV PRN (15:45)
[2021-09-19] MEDS ORDERED: VENTOLIN COMMON CANISTER IH PRN (15:45)
[2021-09-19] MEDS ORDERED: solu-CORTEF 100MG IV PRN (15:45)
[2021-09-19] MEDS ORDERED: Epipen 0.3 MG SQ PRN (15:45)
[2021-09-19] MEDS ORDERED: Pepcid 20 MG VIAL IV PRN (15:45)
[2021-09-19] MEDS ORDERED: Sodium Chloride 0.9% 1000 ML 1,000 ML IV PRN (15:45)
[2021-09-19] MEDS ORDERED: BENADRYL 50 MG/ML IV PRN (15:45)
[2021-09-19] MEDS: SOTROVIMAB (EUA) 500 MG in Sodium Chloride 0.9% 100 ML BAG 100 ML IV ONE (16:22)
[2021-09-19 16:51] VITALS: O2SAT 98
[2021-09-19 18:32] VITALS: BP 124/75; PULSE 79
== END 2021-09-19 18:00 | disposition home or self-care (01) ==
LOC: MED SURG 15:19
PROVIDERS: ADMIT Obstetrics & Gynecology; ATTEND Obstetrics & Gynecology
DX: O98.512 Other viral diseases complicating pregnancy, second trimester (principal); U07.1 COVID-19; Z3A.27 27 weeks gestation of pregnancy
CPT/HCPCS: G0378; M0247; Q0247

== ENCOUNTER 2021-10-08 12:07 | Observation (INO) | payer BC ==
[2021-10-08 14:19] VITALS: BP 111/72; PULSE 96
== END 2021-10-08 13:30 | disposition home or self-care (01) ==
LOC: MED SURG 12:07
PROVIDERS: ADMIT Obstetrics & Gynecology; ATTEND Obstetrics & Gynecology
DX: Z34.83 Encounter for supervision of other normal pregnancy, third trimester (principal); Z3A.30 30 weeks gestation of pregnancy
CPT/HCPCS: 59025; G0378

== ENCOUNTER 2021-10-20 18:52 | Observation (INO) | payer BC ==
[2021-10-20 19:38] VITALS: BP 122/76; PULSE 90; O2SAT 97
== END 2021-10-20 20:20 | disposition home or self-care (01) ==
LOC: OB 18:52
PROVIDERS: ADMIT Obstetrics & Gynecology; ATTEND Obstetrics & Gynecology
DX: Z34.83 Encounter for supervision of other normal pregnancy, third trimester (principal); Z3A.32 32 weeks gestation of pregnancy; Z20.828 Contact with and (suspected) exposure to other viral communicable diseases
CPT/HCPCS: 59025; G0378

== ENCOUNTER 2021-11-03 19:23 | Observation (INO) | payer BC ==
[2021-11-03 19:58] VITALS: BP 120/72; PULSE 83; O2SAT 98
== END 2021-11-03 20:35 | disposition home or self-care (01) ==
LOC: MED SURG 19:23 → UNDOADMOB 19:23 → UNDODISOB 20:35
PROVIDERS: ADMIT Obstetrics & Gynecology; ATTEND Obstetrics & Gynecology
DX: Z34.83 Encounter for supervision of other normal pregnancy, third trimester (principal); Z3A.34 34 weeks gestation of pregnancy
CPT/HCPCS: 59025; G0378

== ENCOUNTER 2021-11-09 15:50 | Observation (INO) | payer BC ==
[2021-11-09 16:22] VITALS: BP 135/82; PULSE 100; O2SAT 100
== END 2021-11-09 16:43 | disposition home or self-care (01) ==
LOC: OB 15:50
PROVIDERS: ADMIT Obstetrics & Gynecology; ATTEND Obstetrics & Gynecology
DX: O98.513 Other viral diseases complicating pregnancy, third trimester (principal); Z3A.33 33 weeks gestation of pregnancy
CPT/HCPCS: 59025; G0378

== ENCOUNTER 2021-11-16 16:37 | Observation (INO) | payer BC ==
[2021-11-16 18:58] VITALS: BP 120/74; PULSE 90; O2SAT 98
== END 2021-11-16 17:55 | disposition home or self-care (01) ==
LOC: OB 16:37
PROVIDERS: ADMIT Obstetrics & Gynecology; ATTEND Obstetrics & Gynecology
DX: O98.513 Other viral diseases complicating pregnancy, third trimester (principal); Z3A.35 35 weeks gestation of pregnancy
CPT/HCPCS: 59025; G0378

== ENCOUNTER 2021-11-23 16:57 | Observation (INO) | payer BC ==
[2021-11-23 17:23] VITALS: BP 125/70; PULSE 103
== END 2021-11-23 17:45 | disposition home or self-care (01) ==
LOC: OB 16:57
PROVIDERS: ADMIT Obstetrics & Gynecology; ATTEND Obstetrics & Gynecology
DX: O98.513 Other viral diseases complicating pregnancy, third trimester (principal); Z3A.36 36 weeks gestation of pregnancy
CPT/HCPCS: 59025; G0378

== ENCOUNTER 2021-11-30 04:13 | Inpatient (IN) | payer BC ==
[2021-11-30] MEDS ORDERED: BRETHINE 1 MG/ML SQ PRN (05:44)
[2021-11-30] MEDS ORDERED: XYLOCAINE 1% HCL 20 ML MDV IJ PRN (05:47)
[2021-11-30] MEDS: Lactated Ringers 1,000 ML IV SCH (06:07)
[2021-11-30] MEDS: PITOCIN 30 UNITS/ LR 500 ML 30 UNITS/500 ML PLAST..BAG IV SCH ×2 (06:07→08:30)
[2021-11-30 06:12] LABS: Absolute Neutrophil Ct (ANC) 8.65 (1.4-6.9); Basophil (Absolute #) 0 (0-0.4); Eosinophil (Absolute #) 0.11 (0-0.5); Hematocrit 32.8 % (35-47); Hemoglobin 10.7 gm/dl (12.0-16.0); Lymphocyte (Absolute #) 1.68 (1.0-4.6); Lymphocytes % 14.8 % (24.0-44.0); Mean Cell Volume 82.4 fl (78-100); Mean Corpuscular Hemoglobin 26.9 pg (26-32); Mean Corpuscular Hgb Concent. 32.6 g/dl (32-36); Mean Platelet Volume 10.7 fl (7.5-11.0); Monocyte (Absolute #) 0.92 (0.0-1.3); Monocytes % 8.1 % (0.0-12.0); Neutrophil % 76.1 % (36.0-66.0); Platelet Count 206 K/mm3 (150-450); Red Blood Count 3.98 M/mm3 (4.1-5.4); Red Cell Distribution Width 13.5 % (11.5-14.0); White Blood Count 11.4 K/mm3 (4.0-10.5)
[2021-11-30 06:24] LABS: ALBUMIN 3.7 g/dL (3.5-5.0); ALKALINE PHOSPHATASE 79 U/L (38-126); ANION GAP 13.1 MEQ/L (5-15); BLOOD UREA NITROGEN 7 mg/dL (7-17); CHLORIDE 107 mmol/L (98-107); Carbon Dioxide 19 mmol/L (22-30); Creatinine 1 0.51 mg/dL (0.52-1.04); EST GLOMERULAR FILTRATION RATE > 60.0 ML/MIN; Glucose 89 mg/dL (74-106); Potassium 3.8 mmol/L (3.5-5.1); SGOT/AST 20 U/L (14-36); SGPT/ALT 13 U/L (0-35); SODIUM 135 mmol/L (137-145)
[2021-11-30 06:52] LABS: ABO TYPING A; Antibody Screen NEGATIVE (NEGATIVE); RH TYPING POSITIVE
[2021-11-30 07:43] LABS: Amphetamine,Urine NEGATIVE (NEGATIVE); Barbiturate,Urine NEGATIVE (NEGATIVE); Benzodiazepine,Urine NEGATIVE (NEGATIVE); Cocaine,Urine NEGATIVE (NEGATIVE); Methadone,Urine NEGATIVE (NEGATIVE); Opiate,Urine NEGATIVE (NEGATIVE); PCP,Urine NEGATIVE (NEGATIVE); THC,Urine NEGATIVE (NEGATIVE)
[2021-11-30 08:08] LABS: Creatinine, Urine Random 16.9 mg/dl; Protein Creatinine Ratio, Ran. 0.71 mg/mg (0.0-0.15)
[2021-11-30] MEDS ORDERED: Protonix 40MG Tablet PO ONE (08:15)
[2021-11-30] MEDS ORDERED: FENTANYL 2 MCG-BUPIV 0.125%-NS 250 ML Epidur 250 ML EPIDURAL SCH (08:45)
[2021-11-30] MEDS ORDERED: Mylicon 80MG PO PRN (13:16)
[2021-11-30] MEDS ORDERED: Dermoplast Spray TP PRN (13:16)
[2021-11-30] MEDS ORDERED: LANSINOH 40 GM TOP PRN (13:16)
[2021-11-30] MEDS: MOTRIN 400 MG PO PRN ×2 (13:47→19:58)
[2021-11-30] MEDS ORDERED: Adacel Vial IM ONE (16:00)
[2021-11-30] MEDS: Colace 100 MG PO SCH (23:02)
[2021-11-30] MEDS: TYLENOL EXTRA STRENGTH 500 MG PO PRN (23:03)
--- NOTE | 2021-12-01 04:27 | PCM.NOTE ---
Date and Time: 12/01/21 0425 Subjective Assessment: ppd 1 sp pt resting in bed doing well without issues. vss afebrile abd; soft uterus; firm lochia; mild a/p sp ppd 1 with preeclampsia anticipate discharge home tomorrow should fu in office in 3 wks OBJECTIVE DATA Vital Signs: Vital Signs - 24 hr Temp Pulse Resp BP BP Pulse Ox 12/01/21 03:00 97.8 F 97 H 20 129/79 97 12/01/21 01:00 97.8 F 97 H 20 129/79 97 11/30/21 21:20 98 F 96 H 20 135/81 98 11/30/21 20:00 98 F 96 H 20 135/81 98 11/30/21 16:59 108 H 20 122/72 11/30/21 15:20 100 H 20 130/74 98 11/30/21 13:20 98.4 F 135 H 20 135/94 100 11/30/21 13:00 98.4 F 108 H 20 134/92 100 11/30/21 12:38 98.4 F 98 H 20 135/80 100 11/30/21 12:30 98.4 F 102 H 20 105/62 100 11/30/21 12:15 98.3 F 93 H 20 132/84 100 11/30/21 12:00 98.3 F 93 H 20 132/84 132/84 100 11/30/21 11:45 98.3 F 100 H 20 124/74 100 11/30/21 11:30 98.3 F 98 H 20 120/72 100 11/30/21 11:15 98.3 F 84 20 119/69 100 11/30/21 11:00 98.3 F 111 H 20 116/78 100 11/30/21 10:45 98.3 F 107 H 20 112/72 100 11/30/21 10:30 98.3 F 106 H 20 123/80 100 11/30/21 10:15 98.3 F 100 H 20 132/85 100 11/30/21 10:00 98.3 F 85 20 131/87 100 11/30/21 09:45 98.3 F 92 H 20 130/83 100 11/30/21 09:30 98.3 F 93 H 20 130/83 100 11/30/21 09:15 98.3 F 92 H 20 120/70 100 11/30/21 09:00 98.3 F 100 H 20 121/69 100 11/30/21 08:45 98.3 F 99 H 20 118/58 100 11/30/21 08:30 98.3 F 105 H 20 113/57 100 11/30/21 08:15 98.3 F 111 H 20 112/57 100 11/30/21 08:00 98.3 F 111 H 20 103/58 103/58 98 11/30/21 07:45 98.3 F 82 20 107/52 100 11/30/21 07:30 98.3 F 100 H 20 134/79 100 11/30/21 07:15 98.3 F 100 H 20 129/74 100 11/30/21 07:00 106 H 20 139/92 100 11/30/21 06:45 106 H 20 139/92 100 11/30/21 06:30 99.3 F 105 H 20 139/92 99 11/30/21 06:15 89 18 99 11/30/21 06:00 89 18 140/90 99 11/30/21 05:44 99.6 F 99 H 20 183/106 93 L 11/30/21 05:00 99.9 F 99 H 18 140/90 140/90 98 Pain Assessment - Last Documented Pain Intensity [Bilateral 0 Lower] Pain Intensity 4 Pain Scale Used 0-10 Pain Scale Intake and Output: Intake & Output 11/28/21 11/29/21 11/30/21 12/01/21 11:59 11:59 11:59 11:59 Weight 85.729 kg Lab Results: Lab Results-Last 24 Hours 11/30/21 11/30/21 11/30/21 Range/Units 05:47 06:00 06:00 WBC 11.4 H (4.0-10.5) K/mm3 RBC 3.98 L (4.1-5.4) M/mm3 Hgb 10.7 L (12.0-16.0) gm/dl Hct 32.8 L (35-47) % MCV 82.4 (78-100) fl MCH 26.9 (26-32) pg MCHC 32.6 (32-36) g/dl RDW 13.5 (11.5-14.0) % Plt Count 206 (150-450) K/mm3 MPV 10.7 (7.5-11.0) fl Gran % 76.1 H (36.0-66.0) % Eos # (Auto) 0.11 (0-0.5) Absolute Lymphs (auto) 1.68 (1.0-4.6) Absolute Monos (auto) 0.92 (0.0-1.3) Lymphocytes % 14.8 L (24.0-44.0) % Monocytes % 8.1 (0.0-12.0) % Eosinophils % 1.0 (0.00-5.0) % Basophils % 0.0 (0.0-0.4) % Absolute Granulocytes 8.65 H (1.4-6.9) Basophils # 0 (0-0.4) Sodium 135 L (137-145) mmol/L Potassium 3.8 (3.5-5.1) mmol/L Chloride 107 (98-107) mmol/L Carbon Dioxide 19 L (22-30) mmol/L Anion Gap 13.1 (5-15) MEQ/L BUN 7 (7-17) mg/dL Creatinine 0.51 L (0.52-1.04) mg/dL Estimated GFR > 60.0 ML/MIN Glucose 89 (74-106) mg/dL Uric Acid (2.6-6.0) mg/dL Calcium 9.0 (8.4-10.2) mg/dL Total Bilirubin 0.40 (0.2-1.3) mg/dL AST 20 (14-36) U/L ALT 13 (0-35) U/L Alkaline Phosphatase 79 (38-126) U/L Serum Total Protein 7.0 (6.3-8.2) g/dL Albumin 3.7 (3.5-5.0) g/dL Ur Random Creatinine mg/dl U Random Total Protein (<12) mg/dl U [place] Prot/Creat Ratio (0.0-0.15) mg/mg Urine Opiates Level NEGATIVE (NEGATIVE) Ur Methadone NEGATIVE (NEGATIVE) Urine Barbiturates NEGATIVE (NEGATIVE) Ur Phencyclidine (PCP) NEGATIVE (NEGATIVE) Urine Amphetamine NEGATIVE (NEGATIVE) U Benzodiazepine Level NEGATIVE (NEGATIVE) Urine Cocaine NEGATIVE (NEGATIVE) Urine Marijuana (THC) NEGATIVE (NEGATIVE) ABO Group Rh Factor Antibody Screen (NEGATIVE) 11/30/21 11/30/21 11/30/21 Range/Units 06:00 06:00 Unknown WBC (4.0-10.5) K/mm3 RBC (4.1-5.4) M/mm3 Hgb (12.0-16.0) gm/dl Hct (35-47) % MCV (78-100) fl MCH (26-32) pg MCHC (32-36) g/dl RDW (11.5-14.0) % Plt Count (150-450) K/mm3 MPV (7.5-11.0) fl Gran % (36.0-66.0) % Eos # (Auto) (0-0.5) Absolute Lymphs (auto) (1.0-4.6) Absolute Monos (auto) (0.0-1.3) Lymphocytes % (24.0-44.0) % Monocytes % (0.0-12.0) % Eosinophils % (0.00-5.0) % Basophils % (0.0-0.4) % Absolute Granulocytes (1.4-6.9) Basophils # (0-0.4) Sodium (137-145) mmol/L Potassium (3.5-5.1) mmol/L Chloride (98-107) mmol/L Carbon Dioxide (22-30) mmol/L Anion Gap (5-15) MEQ/L BUN (7-17) mg/dL Creatinine (0.52-1.04) mg/dL Estimated GFR ML/MIN Glucose (74-106) mg/dL Uric Acid 3.9 (2.6-6.0) mg/dL Calcium (8.4-10.2) mg/dL Total Bilirubin (0.2-1.3) mg/dL AST (14-36) U/L ALT (0-35) U/L Alkaline Phosphatase (38-126) U/L Serum Total Protein (6.3-8.2) g/dL Albumin (3.5-5.0) g/dL Ur Random Creatinine 16.9 mg/dl U Random Total Protein 12.0 (<12) mg/dl U [place] Prot/Creat Ratio 0.71 H (0.0-0.15) mg/mg Urine Opiates Level (NEGATIVE) Ur Methadone (NEGATIVE) Urine Barbiturates (NEGATIVE) Ur Phencyclidine (PCP) (NEGATIVE) Urine Amphetamine (NEGATIVE) U Benzodiazepine Level (NEGATIVE) Urine Cocaine (NEGATIVE) Urine Marijuana (THC) (NEGATIVE) ABO Group A Rh Factor POSITIVE Antibody Screen NEGATIVE (NEGATIVE) Assessment/Plan (1) Preeclampsia Current Visit: Yes Status: Acute Code(s): O14.90 - UNSPECIFIED PRE- ECLAMPSIA, UNSPECIFIED TRIMESTER (2) Vaginal delivery Current Visit: Yes Status: Acute Code(s): O80 - ENCOUNTER FOR FULL-TERM UNCOMPLICATED DELIVERY
--- NOTE | 2021-12-01 04:31 | PCM.DS ---
Discharge Summary Date of Admission: 11/30/21 04:13 Admitting Physician: ANANTH MONSIVAIS DO Consults: Consults on Case 11/30/21 16:00 Navigation ONCE Primary Care Provider: STEF BOWDEN Allergies Allergies No Known Drug Allergies Allergy (Verified 11/03/21 20:15) Hospital Summary - Hospital Course Hospital Course: pt was admitted on november 30 for elevated bp and increased prot/cr ratio. hx of x 2 in the past and had co irregular contx. on admission pt was noted being 2-3 cm dilated. it was determined at this time to proceed with augmentation secondary to preeclampsia and pt subsequently delivered live baby girl without complcaation after having received her epidural. during period did well and had normal blood pressures. at this time pt stable for discharge on december 02. all questions answered to her satisfaction and was advised to fu in office in 3 wks. - Vitals & Intake/Output Vital Signs: Vital Signs Temperature 97.8 F 12/01/21 03:00 Pulse Rate 97 H 12/01/21 03:00 Respiratory Rate 20 12/01/21 03:00 Blood Pressure 129/79 12/01/21 03:00 O2 Sat by Pulse Oximetry 97 12/01/21 03:00 Intake & Output: Intake & Output 11/28/21 11/29/21 11/30/21 12/01/21 11:59 11:59 11:59 11:59 Weight 85.729 kg - Lab Result Diagrams: 11/30/21 06:00 11/30/21 06:00 Lab Results-Last 24 Hrs: Lab Results-Last 24 Hours 11/30/21 11/30/21 11/30/21 Range/Units 05:47 06:00 06:00 WBC 11.4 H (4.0-10.5) K/mm3 RBC 3.98 L (4.1-5.4) M/mm3 Hgb 10.7 L (12.0-16.0) gm/dl Hct 32.8 L (35-47) % MCV 82.4 (78-100) fl MCH 26.9 (26-32) pg MCHC 32.6 (32-36) g/dl RDW 13.5 (11.5-14.0) % Plt Count 206 (150-450) K/mm3 MPV 10.7 (7.5-11.0) fl Gran % 76.1 H (36.0-66.0) % Eos # (Auto) 0.11 (0-0.5) Absolute Lymphs (auto) 1.68 (1.0-4.6) Absolute Monos (auto) 0.92 (0.0-1.3) Lymphocytes % 14.8 L (24.0-44.0) % Monocytes % 8.1 (0.0-12.0) % Eosinophils % 1.0 (0.00-5.0) % Basophils % 0.0 (0.0-0.4) % Absolute Granulocytes 8.65 H (1.4-6.9) Basophils # 0 (0-0.4) Sodium 135 L (137-145) mmol/L Potassium 3.8 (3.5-5.1) mmol/L Chloride 107 (98-107) mmol/L Carbon Dioxide 19 L (22-30) mmol/L Anion Gap 13.1 (5-15) MEQ/L BUN 7 (7-17) mg/dL Creatinine 0.51 L (0.52-1.04) mg/dL Estimated GFR > 60.0 ML/MIN Glucose 89 (74-106) mg/dL Uric Acid (2.6-6.0) mg/dL Calcium 9.0 (8.4-10.2) mg/dL Total Bilirubin 0.40 (0.2-1.3) mg/dL AST 20 (14-36) U/L ALT 13 (0-35) U/L Alkaline Phosphatase 79 (38-126) U/L Serum Total Protein 7.0 (6.3-8.2) g/dL Albumin 3.7 (3.5-5.0) g/dL Ur Random Creatinine mg/dl U Random Total Protein (<12) mg/dl U [place] Prot/Creat Ratio (0.0-0.15) mg/mg Urine Opiates Level NEGATIVE (NEGATIVE) Ur Methadone NEGATIVE (NEGATIVE) Urine Barbiturates NEGATIVE (NEGATIVE) Ur Phencyclidine (PCP) NEGATIVE (NEGATIVE) Urine Amphetamine NEGATIVE (NEGATIVE) U Benzodiazepine Level NEGATIVE (NEGATIVE) Urine Cocaine NEGATIVE (NEGATIVE) Urine Marijuana (THC) NEGATIVE (NEGATIVE) ABO Group Rh Factor Antibody Screen (NEGATIVE) 11/30/21 11/30/21 11/30/21 Range/Units 06:00 06:00 Unknown WBC (4.0-10.5) K/mm3 RBC (4.1-5.4) M/mm3 Hgb (12.0-16.0) gm/dl Hct (35-47) % MCV (78-100) fl MCH (26-32) pg MCHC (32-36) g/dl RDW (11.5-14.0) % Plt Count (150-450) K/mm3 MPV (7.5-11.0) fl Gran % (36.0-66.0) % Eos # (Auto) (0-0.5) Absolute Lymphs (auto) (1.0-4.6) Absolute Monos (auto) (0.0-1.3) Lymphocytes % (24.0-44.0) % Monocytes % (0.0-12.0) % Eosinophils % (0.00-5.0) % Basophils % (0.0-0.4) % Absolute Granulocytes (1.4-6.9) Basophils # (0-0.4) Sodium (137-145) mmol/L Potassium (3.5-5.1) mmol/L Chloride (98-107) mmol/L Carbon Dioxide (22-30) mmol/L Anion Gap (5-15) MEQ/L BUN (7-17) mg/dL Creatinine (0.52-1.04) mg/dL Estimated GFR ML/MIN Glucose (74-106) mg/dL Uric Acid 3.9 (2.6-6.0) mg/dL Calcium (8.4-10.2) mg/dL Total Bilirubin (0.2-1.3) mg/dL AST (14-36) U/L ALT (0-35) U/L Alkaline Phosphatase (38-126) U/L Serum Total Protein (6.3-8.2) g/dL Albumin (3.5-5.0) g/dL Ur Random Creatinine 16.9 mg/dl U Random Total Protein 12.0 (<12) mg/dl U [place] Prot/Creat Ratio 0.71 H (0.0-0.15) mg/mg Urine Opiates Level (NEGATIVE) Ur Methadone (NEGATIVE) Urine Barbiturates (NEGATIVE) Ur Phencyclidine (PCP) (NEGATIVE) Urine Amphetamine (NEGATIVE) U Benzodiazepine Level (NEGATIVE) Urine Cocaine (NEGATIVE) Urine Marijuana (THC) (NEGATIVE) ABO Group A Rh Factor POSITIVE Antibody Screen NEGATIVE (NEGATIVE) Final Diagnosis/Problem List - Final Discharge Diagnosis/Problem (1) Preeclampsia Current Visit: Yes Status: Acute Code(s): O14.90 - UNSPECIFIED PRE- ECLAMPSIA, UNSPECIFIED TRIMESTER (2) Vaginal delivery Current Visit: Yes Status: Acute Code(s): O80 - ENCOUNTER FOR FULL-TERM UNCOMPLICATED DELIVERY - Discharge Disposition: Home, Self-Care Condition: Stable Prescriptions: No Action Metformin HCl 500 mg [Glucophage 500 MG] 500 mg PO BID Aspirin [Aspirin EC] 81 mg PO DAILY Vits W-Ca,Fe,FA(<1Mg) [] 1 tab PO DAILY Follow up with: STEF BOWDEN [Primary Care Provider] - ANANTH MONSIVAIS DO [ACTIVE STAFF] - 3 weeks
[2021-12-01 05:58] LABS: Basophil (Absolute #) 0.01 (0-0.4); Eosinophil % 2.4 % (0.00-5.0); Eosinophil (Absolute #) 0.23 (0-0.5); Hematocrit 29.6 % (35-47); Hemoglobin 9.4 gm/dl (12.0-16.0); Lymphocyte (Absolute #) 1.94 (1.0-4.6); Lymphocytes % 20.1 % (24.0-44.0); Mean Cell Volume 83.9 fl (78-100); Mean Corpuscular Hemoglobin 26.6 pg (26-32); Mean Corpuscular Hgb Concent. 31.8 g/dl (32-36); Mean Platelet Volume 10.9 fl (7.5-11.0); Monocyte (Absolute #) 0.87 (0.0-1.3); Neutrophil % 68.4 % (36.0-66.0); Platelet Count 182 K/mm3 (150-450); Red Blood Count 3.53 M/mm3 (4.1-5.4); Red Cell Distribution Width 13.7 % (11.5-14.0); White Blood Count 9.7 K/mm3 (4.0-10.5)
[2021-12-01] MEDS: FERREX 150 PO SCH (09:32)
[2021-12-01] MEDS: MOTRIN 400 MG PO PRN ×2 (09:32→19:40)
[2021-12-01] MEDS: Colace 100 MG PO SCH ×2 (09:32→21:38)
[2021-12-01] MEDS: TYLENOL EXTRA STRENGTH 500 MG PO PRN (19:40)
[2021-12-01] MEDS ORDERED: Trandate 100 MG ONE (21:01)
[2021-12-01] MEDS ORDERED: Trandate 100 MG PO SCH (22:00)
[2021-12-01 22:11] LABS: HBsAg Screen Negative (Negative)
[2021-12-02] MEDS: MOTRIN 400 MG PO PRN ×2 (08:11→22:11)
[2021-12-02] MEDS: FERREX 150 PO SCH (09:57)
[2021-12-02] MEDS: Colace 100 MG PO SCH ×2 (09:57→22:12)
[2021-12-02] MEDS: Trandate 100 MG PO SCH ×2 (09:58→22:12)
[2021-12-02] MEDS ORDERED: Magnesium Sulfate 40 Gm/1000 Ml H2O Premix*** 1,000 ML IV SCH (13:30)
[2021-12-02 13:50] LABS: Hemoglobin 9.6 gm/dl (12.0-16.0); Mean Corpuscular Hemoglobin 26.9 pg (26-32); Mean Platelet Volume 10.1 fl (7.5-11.0); Platelet Count 191 K/mm3 (150-450); Red Blood Count 3.57 M/mm3 (4.1-5.4); Red Cell Distribution Width 13.7 % (11.5-14.0); White Blood Count 7.7 K/mm3 (4.0-10.5)
[2021-12-02 13:55] LABS: INR 0.9 (0.8-3.0); PROTIME 10.6 SECONDS (9.4-12.5)
[2021-12-02 13:58] LABS: PTT 24.4 SECONDS (25.1-36.5)
[2021-12-02 14:00] LABS: ALBUMIN 3.3 g/dL (3.5-5.0); ALKALINE PHOSPHATASE 63 U/L (38-126); ANION GAP 8.8 MEQ/L (5-15); BLOOD UREA NITROGEN 7 mg/dL (7-17); CHLORIDE 109 mmol/L (98-107); Calcium 9.2 mg/dL (8.4-10.2); Carbon Dioxide 25 mmol/L (22-30); EST GLOMERULAR FILTRATION RATE > 60.0 ML/MIN; Glucose 121 mg/dL (74-106); MAGNESIUM 1.6 mg/dL (1.6-2.3); Potassium 3.7 mmol/L (3.5-5.1); SGOT/AST 36 U/L (14-36); SGPT/ALT 30 U/L (0-35); SODIUM 139 mmol/L (137-145); Total Protein 6.6 g/dL (6.3-8.2)
[2021-12-02 14:30] LABS: Appearance CLEAR (CLEAR); Bilirubin NEGATIVE (NEGATIVE); Dipstick done @ ? MAIN LAB; Glucose NEGATIVE (NEGATIVE); Ketones NEGATIVE (NEGATIVE); Nitrite NEGATIVE (NEGATIVE); Protein,Urine Dip NEGATIVE (Negative); RBC NEGATIVE Ery/ul (0-5); Specific Gravity 1.015 (1.005-1.025); Urobilinogen 0.2 mg/dL (0-1)
[2021-12-02 14:31] LABS: RBC 0-2 /HPF (0-2)
[2021-12-02 14:42] LABS: Urine Cultured Indicated? ORDERED SEPARATELY
[2021-12-02] MEDS: Lactated Ringers 1,000 ML IV SCH (14:59)
--- NOTE | 2021-12-02 15:34 | PCM.NOTE ---
Date and Time: 12/02/21 1529 Subjective Assessment: ppd 3 pt noted having elevated bp last night and into today with associated headaches not relieved with nsaids. hx of preeclampsia with previous and pt noted having preeclampsia with this with noted elevated bp upon admission and elevated prot/cr ratio. 150's/90 abd; soft uterus; firm a/p sp ppd 3 with hx of preeclampsia and htn will start magso4 at this time will continue labetolol 200mg bid will plan to discontinue magso4 in am OBJECTIVE DATA Vital Signs: Vital Signs - 24 hr Temp Pulse Resp BP Pulse Ox 12/02/21 07:30 99.0 F 87 18 137/95 99 12/02/21 06:50 98.8 F 90 16 140/98 100 12/02/21 02:00 97.8 F 78 20 137/84 99 12/01/21 20:30 98 H 18 139/98 98 12/01/21 20:00 98.7 F 98 H 20 139/95 97 12/01/21 19:30 94 H 18 142/95 99 Pain Assessment - Last Documented Pain Intensity [Bilateral 5 Lower] Pain Intensity 4 Pain Scale Used 0-10 Pain Scale Intake and Output: Intake & Output 11/30/21 12/01/21 12/02/21 12/03/21 11:59 11:59 11:59 11:59 Intake Total 1500 Balance 1500 Weight 85.729 kg Lab Results: Lab Results-Last 24 Hours 11/30/21 12/02/21 12/02/21 Range/Units 06:00 13:15 13:40 WBC 7.7 (4.0-10.5) K/mm3 RBC 3.57 L (4.1-5.4) M/mm3 Hgb 9.6 L (12.0-16.0) gm/dl Hct 30.0 L (35-47) % MCV 84.0 (78-100) fl MCH 26.9 (26-32) pg MCHC 32.0 (32-36) g/dl RDW 13.7 (11.5-14.0) % Plt Count 191 (150-450) K/mm3 MPV 10.1 (7.5-11.0) fl PT (9.4-12.5) SECONDS INR (0.8-3.0) APTT (25.1-36.5) SECONDS Sodium (137-145) mmol/L Potassium (3.5-5.1) mmol/L Chloride (98-107) mmol/L Carbon Dioxide (22-30) mmol/L Anion Gap (5-15) MEQ/L BUN (7-17) mg/dL Creatinine (0.52-1.04) mg/dL Estimated GFR ML/MIN Glucose (74-106) mg/dL Calcium (8.4-10.2) mg/dL Magnesium (1.6-2.3) mg/dL Total Bilirubin (0.2-1.3) mg/dL AST (14-36) U/L ALT (0-35) U/L Alkaline Phosphatase (38-126) U/L Serum Total Protein (6.3-8.2) g/dL Albumin (3.5-5.0) g/dL Urinalys Dipstick Clnc MAIN LAB Urine Color Cancelled Urine Appearance Cancelled Urine pH Cancelled Ur Specific [place] Cancelled Urine Protein Cancelled POC Urine Protein Conf NEGATIVE (Negative) Urine Ketones Cancelled Urine Blood Cancelled Urine Nitrite Cancelled Urine Bilirubin Cancelled Urine Urobilinogen Cancelled Ur Leukocyte Esterase Cancelled Urine Leukocytes NEGATIVE (NEGATIVE) Urine WBC (Auto) NONE (0-5) /HPF Urine RBC (Auto) 0-2 (0-2) /HPF U Epithel Cells (Auto) NONE (FEW) /HPF Urine Bacteria (Auto) NONE (NEGATIVE) /HPF Urine RBC NEGATIVE (0-5) Timmy/ul U Non-Squamous Epi Cells Cancelled Ur Culture Indicated? ORDERED SEPARATELY Urine Culture Reflexed Cancelled Urine Glucose NEGATIVE (NEGATIVE) mg/dL Hep Bs Antigen Negative (Negative) 12/02/21 12/02/21 Range/Units 13:40 13:40 WBC (4.0-10.5) K/mm3 RBC (4.1-5.4) M/mm3 Hgb (12.0-16.0) gm/dl Hct (35-47) % MCV (78-100) fl MCH (26-32) pg MCHC (32-36) g/dl RDW (11.5-14.0) % Plt Count (150-450) K/mm3 MPV (7.5-11.0) fl PT 10.6 (9.4-12.5) SECONDS INR 0.90 (0.8-3.0) APTT 24.4 L (25.1-36.5) SECONDS Sodium 139 (137-145) mmol/L Potassium 3.7 (3.5-5.1) mmol/L Chloride 109 H (98-107) mmol/L Carbon Dioxide 25 (22-30) mmol/L Anion Gap 8.8 (5-15) MEQ/L BUN 7 (7-17) mg/dL Creatinine 0.60 (0.52-1.04) mg/dL Estimated GFR > 60.0 ML/MIN Glucose 121 H (74-106) mg/dL Calcium 9.2 (8.4-10.2) mg/dL Magnesium 1.6 (1.6-2.3) mg/dL Total Bilirubin 0.30 (0.2-1.3) mg/dL AST 36 (14-36) U/L ALT 30 (0-35) U/L Alkaline Phosphatase 63 (38-126) U/L Serum Total Protein 6.6 (6.3-8.2) g/dL Albumin 3.3 L (3.5-5.0) g/dL Urinalys Dipstick Clnc Urine Color Urine Appearance Urine pH Ur Specific [place] Urine Protein POC Urine Protein Conf (Negative) Urine Ketones Urine Blood Urine Nitrite Urine Bilirubin Urine Urobilinogen Ur Leukocyte Esterase Urine Leukocytes (NEGATIVE) Urine WBC (Auto) (0-5) /HPF Urine RBC (Auto) (0-2) /HPF U Epithel Cells (Auto) (FEW) /HPF Urine Bacteria (Auto) (NEGATIVE) /HPF Urine RBC (0-5) Timmy/ul U Non-Squamous Epi Cells Ur Culture Indicated? Urine Culture Reflexed Urine Glucose (NEGATIVE) mg/dL Hep Bs Antigen (Negative) Assessment/Plan (1) Preeclampsia Current Visit: Yes Status: Acute Code(s): O14.90 - UNSPECIFIED PRE- ECLAMPSIA, UNSPECIFIED TRIMESTER (2) Vaginal delivery Current Visit: Yes Status: Acute Code(s): O80 - ENCOUNTER FOR FULL-TERM UNCOMPLICATED DELIVERY (3) hypertension Current Visit: Yes Status: Acute Code(s): O16.5 - UNSPECIFIED MATERNAL HY PERTENSION, COMP THE PUERPERIUM
[2021-12-02] MEDS: TYLENOL EXTRA STRENGTH 500 MG PO PRN (20:09)
[2021-12-03] MEDS: Lactated Ringers 1,000 ML IV SCH ×4 (01:49→02:28)
[2021-12-03 08:26] VITALS: O2SAT 99
--- NOTE | 2021-12-03 09:22 | PCM.NOTE ---
Date and Time: 12/03/21919 Subjective Assessment: ppd 4 sp with htn pt resting in bed and doing well and denies headache at this time. magso4 was discontinued at 5 am vss afebrile abd; soft uterus; firm lochia; mild a/p sp ppd 4 with htn will dc home on labetolol 200mg bid magso4 discontinued at 5 am today should fu in office in 1 wk OBJECTIVE DATA Vital Signs: Vital Signs - 24 hr Temp Pulse Resp BP BP Pulse Ox 12/03/21 08:00 98.1 F 92 H 18 140/86 140/86 99 12/03/21 07:00 80 18 129/84 129/84 99 12/03/21 06:00 85 18 131/85 131/85 99 12/03/21 05:00 82 127/82 12/03/21 04:00 77 121/66 12/03/21 03:41 77 20 122/69 98 12/03/21 03:00 77 122/69 12/03/21 02:00 91 H 123/72 12/03/21 01:00 97.9 F 87 18 121/71 133/76 99 12/03/21 00:00 98.6 F 88 18 121/71 121/71 98 12/02/21 23:00 97.6 F 81 18 134/84 134/84 97 12/02/21 22:00 89 124/75 12/02/21 21:00 89 134/77 12/02/21 20:00 98.6 F 89 12 134/77 134/77 100 12/02/21 19:00 86 18 133/82 98 12/02/21 17:00 81 18 115/65 97 12/02/21 16:00 98.5 F 96 H 16 122/71 97 12/02/21 15:00 98.5 F 81 18 119/70 97 12/02/21 14:14 85 16 121/66 97 12/02/21 14:05 85 18 125/68 98 12/02/21 14:00 98.5 F 88 18 133/86 98 Pain Assessment - Last Documented Pain Intensity [Bilateral 2 Lower] Pain Intensity 0 Pain Scale Used 0-10 Pain Scale Intake and Output: Intake & Output 11/30/21 12/01/21 12/02/21 12/03/21 11:59 11:59 11:59 11:59 Intake Total 1500 6950 Output Total 7285 Balance 1500 -335 Weight 85.729 kg Lab Results: Lab Results-Last 24 Hours 12/02/21 12/02/21 12/02/21 Range/Units 13:15 13:40 13:40 WBC 7.7 (4.0-10.5) K/mm3 RBC 3.57 L (4.1-5.4) M/mm3 Hgb 9.6 L (12.0-16.0) gm/dl Hct 30.0 L (35-47) % MCV 84.0 (78-100) fl MCH 26.9 (26-32) pg MCHC 32.0 (32-36) g/dl RDW 13.7 (11.5-14.0) % Plt Count 191 (150-450) K/mm3 MPV 10.1 (7.5-11.0) fl PT (9.4-12.5) SECONDS INR (0.8-3.0) APTT (25.1-36.5) SECONDS Sodium 139 (137-145) mmol/L Potassium 3.7 (3.5-5.1) mmol/L Chloride 109 H (98-107) mmol/L Carbon Dioxide 25 (22-30) mmol/L Anion Gap 8.8 (5-15) MEQ/L BUN 7 (7-17) mg/dL Creatinine 0.60 (0.52-1.04) mg/dL Estimated GFR > 60.0 ML/MIN Glucose 121 H (74-106) mg/dL Calcium 9.2 (8.4-10.2) mg/dL Magnesium 1.6 (1.6-2.3) mg/dL Total Bilirubin 0.30 (0.2-1.3) mg/dL AST 36 (14-36) U/L ALT 30 (0-35) U/L Alkaline Phosphatase 63 (38-126) U/L Serum Total Protein 6.6 (6.3-8.2) g/dL Albumin 3.3 L (3.5-5.0) g/dL Urinalys Dipstick Clnc MAIN LAB Urine Color Cancelled Urine Appearance Cancelled Urine pH Cancelled Ur Specific [place] Cancelled Urine Protein Cancelled POC Urine Protein Conf NEGATIVE (Negative) Urine Ketones Cancelled Urine Blood Cancelled Urine Nitrite Cancelled Urine Bilirubin Cancelled Urine Urobilinogen Cancelled Ur Leukocyte Esterase Cancelled Urine Leukocytes NEGATIVE (NEGATIVE) Urine WBC (Auto) NONE (0-5) /HPF Urine RBC (Auto) 0-2 (0-2) /HPF U Epithel Cells (Auto) NONE (FEW) /HPF Urine Bacteria (Auto) NONE (NEGATIVE) /HPF Urine RBC NEGATIVE (0-5) Timmy/ul U Non-Squamous Epi Cells Cancelled Ur Culture Indicated? ORDERED SEPARATELY Urine Culture Reflexed Cancelled Urine Glucose NEGATIVE (NEGATIVE) mg/dL 12/02/21 12/02/21 12/03/21 Range/Units 13:40 20:29 02:10 WBC (4.0-10.5) K/mm3 RBC (4.1-5.4) M/mm3 Hgb (12.0-16.0) gm/dl Hct (35-47) % MCV (78-100) fl MCH (26-32) pg MCHC (32-36) g/dl RDW (11.5-14.0) % Plt Count (150-450) K/mm3 MPV (7.5-11.0) fl PT 10.6 (9.4-12.5) SECONDS INR 0.90 (0.8-3.0) APTT 24.4 L (25.1-36.5) SECONDS Sodium (137-145) mmol/L Potassium (3.5-5.1) mmol/L Chloride (98-107) mmol/L Carbon Dioxide (22-30) mmol/L Anion Gap (5-15) MEQ/L BUN (7-17) mg/dL Creatinine (0.52-1.04) mg/dL Estimated GFR ML/MIN Glucose (74-106) mg/dL Calcium (8.4-10.2) mg/dL Magnesium 4.0 H 4.6 H (1.6-2.3) mg/dL Total Bilirubin (0.2-1.3) mg/dL AST (14-36) U/L ALT (0-35) U/L Alkaline Phosphatase (38-126) U/L Serum Total Protein (6.3-8.2) g/dL Albumin (3.5-5.0) g/dL Urinalys Dipstick Clnc Urine Color Urine Appearance Urine pH Ur Specific [place] Urine Protein POC Urine Protein Conf (Negative) Urine Ketones Urine Blood Urine Nitrite Urine Bilirubin Urine Urobilinogen Ur Leukocyte Esterase Urine Leukocytes (NEGATIVE) Urine WBC (Auto) (0-5) /HPF Urine RBC (Auto) (0-2) /HPF U Epithel Cells (Auto) (FEW) /HPF Urine Bacteria (Auto) (NEGATIVE) /HPF Urine RBC (0-5) Timmy/ul U Non-Squamous Epi Cells Ur Culture Indicated? Urine Culture Reflexed Urine Glucose (NEGATIVE) mg/dL 12/03/21 Range/Units 08:25 WBC (4.0-10.5) K/mm3 RBC (4.1-5.4) M/mm3 Hgb (12.0-16.0) gm/dl Hct (35-47) % MCV (78-100) fl MCH (26-32) pg MCHC (32-36) g/dl RDW (11.5-14.0) % Plt Count (150-450) K/mm3 MPV (7.5-11.0) fl PT (9.4-12.5) SECONDS INR (0.8-3.0) APTT (25.1-36.5) SECONDS Sodium (137-145) mmol/L Potassium (3.5-5.1) mmol/L Chloride (98-107) mmol/L Carbon Dioxide (22-30) mmol/L Anion Gap (5-15) MEQ/L BUN (7-17) mg/dL Creatinine (0.52-1.04) mg/dL Estimated GFR ML/MIN Glucose (74-106) mg/dL Calcium (8.4-10.2) mg/dL Magnesium 3.2 H (1.6-2.3) mg/dL Total Bilirubin (0.2-1.3) mg/dL AST (14-36) U/L ALT (0-35) U/L Alkaline Phosphatase (38-126) U/L Serum Total Protein (6.3-8.2) g/dL Albumin (3.5-5.0) g/dL Urinalys Dipstick Clnc Urine Color Urine Appearance Urine pH Ur Specific [place] Urine Protein POC Urine Protein Conf (Negative) Urine Ketones Urine Blood Urine Nitrite Urine Bilirubin Urine Urobilinogen Ur Leukocyte Esterase Urine Leukocytes (NEGATIVE) Urine WBC (Auto) (0-5) /HPF Urine RBC (Auto) (0-2) /HPF U Epithel Cells (Auto) (FEW) /HPF Urine Bacteria (Auto) (NEGATIVE) /HPF Urine RBC (0-5) Timmy/ul U Non-Squamous Epi Cells Ur Culture Indicated? Urine Culture Reflexed Urine Glucose (NEGATIVE) mg/dL Assessment/Plan (1) Preeclampsia Current Visit: Yes Status: Acute Code(s): O14.90 - UNSPECIFIED PRE- ECLAMPSIA, UNSPECIFIED TRIMESTER (2) Vaginal delivery Current Visit: Yes Status: Acute Code(s): O80 - ENCOUNTER FOR FULL-TERM UNCOMPLICATED DELIVERY (3) hypertension Current Visit: Yes Status: Acute Code(s): O16.5 - UNSPECIFIED MATERNAL HYPERTENSION, COMP THE PUERPERIUM
--- NOTE | 2021-12-03 09:28 | PCM.DCORD ---
- Discharge Discharge Date: 12/03/21 Disposition: Home, Self-Care Condition: Stable Prescriptions: No Action Metformin HCl 500 mg [Glucophage 500 MG] 500 mg PO BID Aspirin [Aspirin EC] 81 mg PO DAILY Vits W-Ca,Fe,FA(<1Mg) [] 1 tab PO DAILY Additional Instructions: to make appointment to be seen per dr monsivasi in 1 week. patient to call if any signs or symptoms of hypertenion such as seeing spots or dizziness Follow up with: STEF BOWDEN [Primary Care Provider] - ANANTH MONSIVAIS DO [ACTIVE STAFF] - 3 weeks
[2021-12-03] MEDS: Colace 100 MG PO SCH (10:41)
[2021-12-03] MEDS: Trandate 100 MG PO SCH (10:41)
[2021-12-03] MEDS: FERREX 150 PO SCH (10:41)
[2021-12-03 12:59] VITALS: BP 136/87; PULSE 85
== END 2021-12-03 11:15 | disposition home or self-care (01) | DRG 807 ==
LOC: OBSVTOIN 04:13 → OB 04:13
PROVIDERS: ADMIT Obstetrics & Gynecology; ATTEND Obstetrics & Gynecology
PROC: 10E0XZZ Delivery of Products of Conception, External Approach (ICD-10-PCS; principal; 2021-11-30)
DX: O14.94 Unspecified pre-eclampsia, complicating childbirth (principal); Z37.0 Single live birth; Z3A.37 37 weeks gestation of pregnancy; R51.9 Headache, unspecified
CPT/HCPCS: 36415; 59400; 80053; 80307; 81015; 82570; 83735; 84156; 84550; 85025; 85027; 85610; 85730; 86850; 86900; 86901; 87086; 87340; J2590; A9270-GY

== ENCOUNTER 2023-06-18 18:34 | Observation (INO) | payer BC ==
[2023-06-18 19:11] LABS: Amphetamine,Urine NEGATIVE (NEGATIVE); Barbiturate,Urine NEGATIVE (NEGATIVE); Benzodiazepine,Urine NEGATIVE (NEGATIVE); Cocaine,Urine NEGATIVE (NEGATIVE); Methadone,Urine NEGATIVE (NEGATIVE); Opiate,Urine NEGATIVE (NEGATIVE); PCP,Urine NEGATIVE (NEGATIVE); THC,Urine NEGATIVE (NEGATIVE)
[2023-06-18 19:31] LABS: Absolute Neutrophil Ct (ANC) 6.47 x10^3/uL (1.4-6.9); BASOPHIL % 0.2 % (0.0-0.4); Basophil (Absolute #) 0.02 x10^3/uL (0-0.4); Eosinophil % 0.8 % (0.00-5.0); Eosinophil (Absolute #) 0.07 x10^3/uL (0-0.5); Hematocrit 33.3 % (35-47); Hemoglobin 10.9 g/dL (12.0-16.0); IMMATURE GRAN # 0.06 x10^3u/L (0.00-0.03); IMMATURE GRAN % 0.7 % (0.00-0.4); Lymphocyte (Absolute #) 1.57 x10^3/uL (1.0-4.6); Lymphocytes % 17.7 % (24.0-44.0); Mean Cell Volume 85.2 fL (78-100); Mean Corpuscular Hemoglobin 27.9 pg (26-32); Mean Corpuscular Hgb Concent. 32.7 g/dL (32-36); Mean Platelet Volume 10.1 fL (7.5-11.0); Monocyte (Absolute #) 0.69 x10^3/uL (0.0-1.3); Monocytes % 7.8 % (0.0-12.0); Neutrophil % 72.8 % (36.0-66.0); Platelet Count 187 x10^3/uL (150-450); Red Blood Count 3.91 x10^6/uL (4.1-5.4); Red Cell Distribution Width 12.4 % (11.5-14.0); White Blood Count 8.9 x10^3/uL (4.0-10.5)
[2023-06-18 19:44] LABS: ALBUMIN 3.9 g/dL (3.5-5.0); ALKALINE PHOSPHATASE 82 U/L (38-126); ANION GAP 11.7 MEQ/L (5-15); BLOOD UREA NITROGEN 6 mg/dL (7-17); CHLORIDE 107 mmol/L (98-107); Calcium 9.1 mg/dL (8.4-10.2); Carbon Dioxide 21 mmol/L (22-30); Creatinine 1 0.44 mg/dL (0.52-1.04); EST GLOMERULAR FILTRATION RATE > 60.0 ML/MIN; Glucose 83 mg/dL (74-106); Potassium 3.7 mmol/L (3.5-5.1); SGOT/AST 21 U/L (14-36); SGPT/ALT 15 U/L (0-35); SODIUM 135 mmol/L (137-145)
[2023-06-18 19:49] LABS: Creatinine, Urine Random 9.6 mg/dl; Protein Creatinine Ratio, Ran. 1.35 mg/mg (0.0-0.15)
[2023-06-18] MEDS ORDERED: Trandate 100 MG ONE (19:51)
[2023-06-18] MEDS ORDERED: Trandate 100 MG PO SCH (20:00)
[2023-06-18 20:15] VITALS: RESP 18
[2023-06-18] MEDS ORDERED: NORCO 5/325 MG PO ONE (20:56)
[2023-06-18] MEDS ORDERED: NORCO 5/325 MG ONE (21:01)
[2023-06-18 21:02] LABS: Appearance Clear (Clear); Bacteria None Seen /HPF (None Seen); Bilirubin Negative (Negative); Blood Negative (Negative); Epithelial Cells None Seen /HPF (None Seen); Glucose, Urine Negative (Negative); Hyaline Casts NONE SEEN /LPF (0-2); Ketones Negative (Negative); Leukocyte Esterase Negative (Negative); Nitrite Negative (Negative); Ph 6.5 (4.6-8.0); Protein,Urine Dip Negative (Negative); RBC 0-2 /HPF (0-5); Specific Gravity <=1.005 (1.005-1.030); Urobilinogen 0.2 mg/dL (0.2); WBC 0-2 /HPF (0-5)
[2023-06-18 21:04] LABS: ADD URINE CULTURE? NO (NO)
[2023-06-18 21:24] VITALS: BP 123/68; PULSE 91; TEMP 98; O2SAT 100
== END 2023-06-18 21:50 | disposition home or self-care (01) ==
LOC: OB 18:34
PROVIDERS: ADMIT Family Medicine; ATTEND Obstetrics & Gynecology
DX: O26.893 Other specified pregnancy related conditions, third trimester (principal); Z3A.30 30 weeks gestation of pregnancy; R51.9 Headache, unspecified; R11.2 Nausea with vomiting, unspecified
CPT/HCPCS: 36415; 80053; 80307; 81001; 82570; 84156; 84550; 85025; G0378; G0379; A9270-GY

== ENCOUNTER 2023-07-27 11:33 | Observation (INO) | payer BC ==
[2023-07-27] MEDS ORDERED: Lactated Ringers 1,000 ML IV ONE (12:43)
[2023-07-27] MEDS ORDERED: Lactated Ringers 1,000 ML IV SCH (13:00)
[2023-07-27 13:04] VITALS: TEMP 98.3
[2023-07-27] MEDS ORDERED: BRETHINE 1 MG/ML SQ ONE (13:24)
[2023-07-27] MEDS ORDERED: PROCARDIA 10 MG PO ONE (13:25)
[2023-07-27 16:43] VITALS: BP 111/67; PULSE 97; RESP 20; O2SAT 99
== END 2023-07-27 16:20 | disposition home or self-care (01) ==
LOC: OB.NST 11:33 → OB 11:34
PROVIDERS: ADMIT Obstetrics & Gynecology; ATTEND Obstetrics & Gynecology
DX: Z34.83 Encounter for supervision of other normal pregnancy, third trimester (principal); Z3A.35 35 weeks gestation of pregnancy
CPT/HCPCS: 59025; 96372; 99213; G0378; A9270-GY

== ENCOUNTER 2023-08-01 23:28 | Observation (INO) | payer BC ==
[2023-08-01 23:58] VITALS: TEMP 98.2
[2023-08-02 01:08] LABS: Absolute Neutrophil Ct (ANC) 5.52 x10^3/uL (1.4-6.9); BASOPHIL % 0.2 % (0.0-0.4); Basophil (Absolute #) 0.02 x10^3/uL (0-0.4); Eosinophil % 1.3 % (0.00-5.0); Eosinophil (Absolute #) 0.11 x10^3/uL (0-0.5); Hematocrit 32.9 % (35-47); Hemoglobin 10.5 g/dL (12.0-16.0); IMMATURE GRAN # 0.04 x10^3u/L (0.00-0.03); IMMATURE GRAN % 0.5 % (0.00-0.4); Lymphocyte (Absolute #) 2.05 x10^3/uL (1.0-4.6); Lymphocytes % 24.3 % (24.0-44.0); Mean Corpuscular Hemoglobin 26.2 pg (26-32); Mean Corpuscular Hgb Concent. 31.9 g/dL (32-36); Mean Platelet Volume 10.5 fL (7.5-11.0); Monocytes % 8.3 % (0.0-12.0); Neutrophil % 65.4 % (36.0-66.0); Platelet Count 207 x10^3/uL (150-450); Red Blood Count 4.01 x10^6/uL (4.1-5.4); Red Cell Distribution Width 13.2 % (11.5-14.0); White Blood Count 8.4 x10^3/uL (4.0-10.5)
[2023-08-02 01:13] LABS: Appearance Clear (Clear); Bacteria Rare /HPF (None Seen); Bilirubin Negative (Negative); Blood Negative (Negative); Epithelial Cells Few /HPF (None Seen); Glucose, Urine Negative (Negative); Hyaline Casts NONE SEEN /LPF (0-2); Ketones Trace (Negative); Leukocyte Esterase Negative (Negative); Nitrite Negative (Negative); Protein,Urine Dip Negative (Negative); RBC 0-2 /HPF (0-5); Urobilinogen 0.2 mg/dL (0.2); WBC 0-2 /HPF (0-5)
[2023-08-02 01:14] LABS: ADD URINE CULTURE? NO (NO)
[2023-08-02 01:23] LABS: ALBUMIN 3.7 g/dL (3.5-5.0); ANION GAP 12.7 MEQ/L (5-15); BILIRUBIN,TOTAL 0.3 mg/dL (0.2-1.3); Creatinine 1 0.51 mg/dL (0.52-1.04); EST GLOMERULAR FILTRATION RATE 130.3 ML/MIN; Potassium 3.7 mmol/L (3.5-5.1); Total Protein 6.9 g/dL (6.3-8.2)
[2023-08-02 01:24] LABS: Creatinine, Urine Random 105.3 mg/dl; Protein Creatinine Ratio, Ran. 0.1 mg/mg (0.0-0.15)
[2023-08-02 01:25] LABS: INR 0.92 (0.8-3.0); PROTIME 10.1 SECONDS (9.4-12.5)
[2023-08-02 01:44] LABS: INFLUENZA A NEGATIVE (NEGATIVE); INFLUENZA B NEGATIVE (NEGATIVE); RESPIRATORY SYNCTIAL VIRUS NEGATIVE (NEGATIVE); SARS-CoV-2 Xpert Express NEGATIVE (NEGATIVE)
[2023-08-02 05:36] VITALS: BP 120/77; PULSE 130; RESP 20; O2SAT 98
== END 2023-08-02 06:20 | disposition home or self-care (01) ==
LOC: OB 23:28
PROVIDERS: ADMIT Obstetrics & Gynecology; ATTEND Obstetrics & Gynecology
DX: Z34.83 Encounter for supervision of other normal pregnancy, third trimester (principal); Z3A.36 36 weeks gestation of pregnancy
CPT/HCPCS: 0241U; 36415; 80053; 81001; 82570; 84156; 84550; 85025; 85610; G0378; G0379

== ENCOUNTER 2023-08-06 04:56 | Inpatient (IN) | payer BC ==
[2023-08-06] MEDS ORDERED: Lactated Ringers 1,000 ML IV SCH (05:00)
[2023-08-06] MEDS ORDERED: Nubain 10 MG/ML IV PRN (05:00)
[2023-08-06] MEDS ORDERED: Zofran 4 MG/2 ML VIAL IV PRN (05:00)
[2023-08-06] MEDS ORDERED: STADOL 2 MG IV PRN (05:00)
[2023-08-06] MEDS ORDERED: Lactated Ringers 1,000 ML IV ONE (05:00)
[2023-08-06] MEDS ORDERED: FENTANYL 2 MCG-BUPIV 0.125%-NS 250 ML Epidur 250 ML EPIDURAL SCH (05:00)
[2023-08-06] MEDS ORDERED: PITOCIN 30 UNITS/ LR 500 ML 30 UNITS/500 ML PLAST..BAG IV SCH (05:00)
[2023-08-06] MEDS ORDERED: BRETHINE 1 MG/ML SQ PRN (05:00)
[2023-08-06 05:48] LABS: Absolute Neutrophil Ct (ANC) 6.31 x10^3/uL (1.4-6.9); BASOPHIL % 0.1 % (0.0-0.4); Basophil (Absolute #) 0.01 x10^3/uL (0-0.4); Eosinophil % 1.4 % (0.00-5.0); Eosinophil (Absolute #) 0.12 x10^3/uL (0-0.5); Hematocrit 34.2 % (35-47); Hemoglobin 10.7 g/dL (12.0-16.0); IMMATURE GRAN # 0.03 x10^3u/L (0.00-0.03); IMMATURE GRAN % 0.3 % (0.00-0.4); Lymphocyte (Absolute #) 1.62 x10^3/uL (1.0-4.6); Lymphocytes % 18.6 % (24.0-44.0); Mean Cell Volume 82.2 fL (78-100); Mean Corpuscular Hemoglobin 25.7 pg (26-32); Mean Corpuscular Hgb Concent. 31.3 g/dL (32-36); Mean Platelet Volume 10.9 fL (7.5-11.0); Monocyte (Absolute #) 0.62 x10^3/uL (0.0-1.3); Monocytes % 7.1 % (0.0-12.0); Neutrophil % 72.5 % (36.0-66.0); Platelet Count 199 x10^3/uL (150-450); Red Blood Count 4.16 x10^6/uL (4.1-5.4); Red Cell Distribution Width 13.2 % (11.5-14.0); White Blood Count 8.7 x10^3/uL (4.0-10.5)
[2023-08-06 06:33] LABS: ABO TYPING A; Antibody Screen NEGATIVE (NEGATIVE); RH TYPING POSITIVE
[2023-08-06 06:44] LABS: Amphetamine,Urine NEGATIVE (NEGATIVE); Barbiturate,Urine POSITIVE (NEGATIVE); Benzodiazepine,Urine NEGATIVE (NEGATIVE); Cocaine,Urine NEGATIVE (NEGATIVE); Methadone,Urine NEGATIVE (NEGATIVE); Opiate,Urine NEGATIVE (NEGATIVE); PCP,Urine NEGATIVE (NEGATIVE); THC,Urine NEGATIVE (NEGATIVE)
[2023-08-06] MEDS ORDERED: TUCKS TP PRN ×2 (13:28→15:00)
[2023-08-06] MEDS ORDERED: LANSINOH 40 GM TOP PRN ×2 (13:28→15:00)
[2023-08-06 14:37] LABS: Appearance Clear (Clear); Bacteria None Seen /HPF (None Seen); Bilirubin Negative (Negative); Blood Negative (Negative); Epithelial Cells None Seen /HPF (None Seen); Glucose, Urine Negative (Negative); Hyaline Casts NONE SEEN /LPF (0-2); Ketones Negative (Negative); Leukocyte Esterase Negative (Negative); Nitrite Negative (Negative); Protein,Urine Dip Negative (Negative); RBC 0-2 /HPF (0-5); Specific Gravity <=1.005 (1.005-1.030); Urobilinogen 0.2 mg/dL (0.2); WBC 0-2 /HPF (0-5)
[2023-08-06] MEDS ORDERED: Dermoplast Spray TP PRN (15:00)
[2023-08-06 15:06] LABS: ADD URINE CULTURE? ORDERED SEPARATELY (NO)
[2023-08-06] MEDS: MOTRIN 400 MG PO PRN (15:39)
[2023-08-06] MEDS: TYLENOL EXTRA STRENGTH 500 MG PO PRN (20:05)
[2023-08-07] MEDS: TYLENOL EXTRA STRENGTH 500 MG PO PRN ×2 (00:22→14:26)
[2023-08-07] MEDS: MOTRIN 400 MG PO PRN ×3 (00:25→19:47)
[2023-08-07 04:59] LABS: Absolute Neutrophil Ct (ANC) 6.86 x10^3/uL (1.4-6.9); BASOPHIL % 0.2 % (0.0-0.4); Basophil (Absolute #) 0.02 x10^3/uL (0-0.4); Eosinophil % 1.6 % (0.00-5.0); Eosinophil (Absolute #) 0.15 x10^3/uL (0-0.5); Hematocrit 30.7 % (35-47); Hemoglobin 9.7 g/dL (12.0-16.0); IMMATURE GRAN # 0.04 x10^3u/L (0.00-0.03); IMMATURE GRAN % 0.4 % (0.00-0.4); Lymphocyte (Absolute #) 1.71 x10^3/uL (1.0-4.6); Lymphocytes % 17.8 % (24.0-44.0); Mean Corpuscular Hemoglobin 26.2 pg (26-32); Mean Corpuscular Hgb Concent. 31.6 g/dL (32-36); Mean Platelet Volume 11.4 fL (7.5-11.0); Monocyte (Absolute #) 0.83 x10^3/uL (0.0-1.3); Monocytes % 8.6 % (0.0-12.0); Neutrophil % 71.4 % (36.0-66.0); Platelet Count 173 x10^3/uL (150-450); Red Cell Distribution Width 13.5 % (11.5-14.0); White Blood Count 9.6 x10^3/uL (4.0-10.5)
[2023-08-07] MEDS: ZOLOFT 50 MG TABLET PO SCH (09:37)
[2023-08-07] MEDS: THERAGRAN MULTIVITAMIN PO SCH (09:37)
[2023-08-07] MEDS: FERREX 150 PO SCH (09:37)
[2023-08-07] MEDS: Docusate Sodium 100 MG PO SCH (09:37)
[2023-08-07] MEDS ORDERED: NON-FORMULARY ITEM (Prenatal Vits W-Ca,Fe,Fa(<1mg) [Prenatal] 1 EACH Tablet) PO SCH (10:00)
[2023-08-07 15:00] VITALS: RESP 18
[2023-08-07] MEDS ORDERED: Adacel Vial IM ONE (15:00)
[2023-08-08] MEDS: MOTRIN 400 MG PO PRN (02:14)
[2023-08-08 02:20] VITALS: TEMP 98.4
[2023-08-08] MEDS: TYLENOL EXTRA STRENGTH 500 MG PO PRN (05:44)
--- NOTE | 2023-08-08 08:47 | PCM.DS ---
Discharge Summary Date of Admission: 08/06/23 07:28 Admitting Physician: ANANTH MONSIVAIS DO Primary Care Provider: STEF BOWDEN Allergies Allergies No Known Drug Allergies Allergy (Verified 08/06/23 05:11) Hospital Summary - Hospital Course Hospital Course: patient had induction at 37wks for chronic hypertension. she is doing great , mild lochia with normal bp. minimal edema, feels great. tolerating po intake and has well controlled, mild pain - Vitals & Intake/Output Vital Signs: Vital Signs Temperature 98.4 F 08/08/23 02:00 Pulse Rate 81 08/08/23 02:00 Respiratory Rate 18 08/08/23 02:00 Blood Pressure 142/72 08/08/23 02:00 O2 Sat by Pulse Oximetry 98 08/08/23 02:00 Intake & Output: Intake & Output 08/05/23 08/06/23 08/07/23 08/08/23 11:59 11:59 11:59 11:59 Intake Total 2500 3200 Output Total 325 Balance -325 2500 3200 Weight 104.326 kg - Lab Result Diagrams: 08/07/23 04:14 Micro Results-Entire Visit: Microbiology 08/06/23 07:45 Urine Culture - Final Catherized NO GROWTH Discharge Exam General Appearance: no apparent distress Neurologic Exam: alert, oriented x 3 Respiratory Exam: normal breath sounds, lungs clear, No respiratory distress Cardiovascular Exam: regular rate/rhythm, normal heart sounds Gastrointestinal/Abdomen Exam: soft, No tenderness, No mass Extremity Exam: normal inspection, normal range of motion Skin Exam: normal color, warm, dry Final Diagnosis/Problem List - Final Discharge Diagnosis/Problem (1) Normal vaginal delivery Current Visit: Yes Status: Acute Code(s): O80 - ENCOUNTER FOR FULL-TERM UNCOMPLICATED DELIVERY (2) Hypertension affecting Current Visit: Yes Status: Acute Code(s): O16.9 - UNSPECIFIED MATERNAL H YPERTENSION, UNSPECIFIED TRIMESTER - Discharge Disposition: Home, Self-Care Condition: Stable Prescriptions: Continue Vits W-Ca,Fe,FA(<1Mg) [] 1 tab PO DAILY Sertraline HCl 50 mg [Zoloft 50 mg Tablet] 50 mg PO DAILY Hydroxyzine HCl 25 mg [Atarax 25 mg] 25 mg PO DAILY PRN PRN PRN Reason: Itching Discontinued Aspirin [Aspirin EC] 162 mg PO DAILY Follow up with: STEF BOWDEN [Primary Care Provider] -
[2023-08-08 11:23] VITALS: BP 134/84; PULSE 94; O2SAT 99
[2023-08-08] MEDS: THERAGRAN MULTIVITAMIN PO SCH (12:48)
[2023-08-08] MEDS: Docusate Sodium 100 MG PO SCH (12:48)
[2023-08-08] MEDS: FERREX 150 PO SCH (12:48)
[2023-08-08] MEDS: ZOLOFT 50 MG TABLET PO SCH (12:48)
== END 2023-08-08 14:00 | disposition home or self-care (01) | DRG 807 ==
LOC: OB 04:56 → OBSVTOIN 07:28 → OB 07:28
PROVIDERS: ADMIT Obstetrics & Gynecology; ATTEND Obstetrics & Gynecology
PROC: 10E0XZZ Delivery of Products of Conception, External Approach (ICD-10-PCS; principal; 2023-08-06)
DX: O16.4 Unspecified maternal hypertension, complicating childbirth (principal); Z37.0 Single live birth; Z3A.37 37 weeks gestation of pregnancy; Z23 Encounter for immunization
CPT/HCPCS: 36415; 80307; 81001; 85025; 86850; 86900; 86901; 87086; 90471; 90715; G0379; J2590; A9270-GY

== ENCOUNTER 2024-09-27 11:22 | Day surgery (SDC) | payer BC ==
--- NOTE | 2024-09-27 08:57 | HP ---
HISTORY OF PRESENT ILLNESS: The patient has borderline wall thickening on ultrasound, gallbladder polyp. She had HIDA scan but then we gave her fatty meal and I gave her CCK. She is having right upper quadrant pain, started with a baby a year and a half ago, now started back up again. She has a new finding of wall thickening and polyp, and no stones on ultrasound. Question whether she has some chronic cholecystitis. PAST MEDICAL HISTORY: Denies any chronic illnesses. HOME MEDICATIONS: control medication as well as multivitamin. ALLERGIES: No known drug allergies. PAST SURGICAL HISTORY: Has had knee scope, ankle surgery, wrist surgery in the past. SOCIAL HISTORY: No smoking. Occasional alcohol use. FAMILY HISTORY: Negative with regard to this problem. REVIEW OF SYSTEMS: Twelve systems reviewed. No chest pain or palpitations. Other systems negative or noncontributory as above and per preadmission questionnaire. PHYSICAL EXAMINATION: GENERAL: Height 5 feet 7 inches. BMI 30.54. No acute distress. HEENT: Sclerae anicteric. NECK: No JVD. CHEST: Equal excursion, nonlabored breathing CARDIOVASCULAR: Regular rate and rhythm. ABDOMEN: Soft. SKIN: Dry. EXTREMITIES: No cyanosis or edema. NEUROLOGIC: Alert, moving all extremities symmetrically. PSYCHIATRIC: Appropriate mood and affect. IMPRESSION: Right upper quadrant pain, some nausea. Question whether she has some chronic cholecystitis. She has some borderline wall thickening, question of gallbladder polyp. She had similar symptoms after HIDA, although ejection fraction was a little low. Other etiologies and differential could include peptic ulcer disease, gastritis, pancreas issues, or other etiology. Options discussed with the patient. We will proceed with upper endoscopy first, cholecystectomy if no improvement then consider upper endoscopy. After discussion with the patient, upper endoscopy first to rule out ulcers, gastritis, or other etiology first. Risks of EGD, possible biopsy explained. Risk of bleeding, infection; risk of bowel injury or perforation possibly requiring other procedure; risk of missed or nondiagnosis or incomplete exam possibly requiring barium swallow, other studies or procedures. If fairly remarkable, schedule outpatient possible open for possible chronic cholecystitis. Otherwise, continue control pills and vitamins. We will proceed with outpatient EGD, possible biopsy under MAC anesthesia.
[2024-09-27] MEDS: Lactated Ringers 1,000 ML IV SCH (11:38)
[2024-09-27 11:54] LABS: HCG URINE TEST NEGATIVE (NEGATIVE)
[2024-09-27 11:56] VITALS: RESP 18
[2024-09-27] MEDS ORDERED: propofoL IV ONE (13:59)
[2024-09-27] MEDS ORDERED: Versed 2 MG/2 ML Injection ONE (13:59)
[2024-09-27 14:40] VITALS: TEMP 99; O2SAT 98
[2024-09-27 14:44] VITALS: BP 116/72; PULSE 72
--- NOTE | 2024-09-28 09:37 | OP ---
SURGERY DATE/TIME: 09/27/2024 [id number] PREOPERATIVE DIAGNOSIS: History of right upper quadrant pain, nausea, need to evaluate for gastritis, ulcer disease, or other etiologies. POSTOPERATIVE DIAGNOSIS: Mild gastric erythema. Otherwise, fairly normal-appearing duodenum and esophagus. PROCEDURE: 1) Esophagogastroduodenoscopy. 2) Cold biopsy of small bowel to rule out celiac sprue. 3) Cold by of antrum to evaluate for H pylori or early inflammation. SURGEON: Alden Ortega MD ANESTHESIA: MAC. ESTIMATED BLOOD LOSS: Minimal. INDICATIONS: Consent obtained. DESCRIPTION OF PROCEDURE AND FINDINGS: Patient was taken to endoscopy room. MAC anesthesia induced. After official time-out, no disagreement in planned procedure. Bite block positioned. Videogastroscope easily passed down the esophagus through the patent pylorus to the junction of the third and fourth portions of duodenum. Duodenum grossly unremarkable. Given her symptoms, cold biopsy taken to evaluate for celiac disease in the small bowel. Scope pulled back in. She had some gastric erythema. There was no evidence of any ulcers or erosion. Cold biopsy taken of that for H pylori. Good hemostasis noted. On retroflex, the GE junction was snug against the scope. No signs of any hiatal hernia. Scope was straightened, pulled up to the GE junction which was about 38 cm. Z-line looked fairly crisp. There did not appear to be any evidence of any obvious issue. No signs of any erosion or significant inflammation. Otherwise, remainder of esophagus with no signs of any mucosal lesions. Scope was withdrawn. Patient tolerated the procedure well. Findings discussed with family out in the waiting area.
== END 2024-09-27 14:50 | disposition home or self-care (01) ==
LOC: SDC 11:22
PROVIDERS: ATTEND Surgery
DX: K29.70 Gastritis, unspecified, without bleeding (principal); K31.89 Other diseases of stomach and duodenum; R10.11 Right upper quadrant pain; R11.0 Nausea
CPT/HCPCS: 81025; J2250; J2704

== ENCOUNTER 2024-10-11 08:32 | Day surgery (SDC) | payer BC ==
--- NOTE | 2024-10-10 17:17 | HP ---
HISTORY OF PRESENT ILLNESS: A 28-year-old with some wall thickening on ultrasound and gallbladder polyp, some right upper quadrant pain that started with the last baby, now started back up again. She did not have the wall thickening or polyp last ultrasound. Otherwise, she had an upper endoscopy that did not show significant findings to account for all of her symptoms. She is interested in proceeding with cholecystectomy at this time. PAST MEDICAL HISTORY: She denies any chronic illness. HOME MEDICATIONS: Raven and multivitamins. ALLERGIES: No known drug allergies. PAST SURGICAL HISTORY: Had a knee scope, ankle surgery, wrist surgery. EGD in the past. Otherwise, denies any chronic illnesses. SOCIAL HISTORY: No smoking. Occasional alcohol use. REVIEW OF SYSTEMS: Twelve systems reviewed. No chest pain or palpitations. Other systems negative or noncontributory as above and per preadmission questionnaire. PHYSICAL EXAMINATION: GENERAL: Height 5 feet 7 inches. BMI 30.54. No acute distress. HEENT: Sclerae anicteric. NECK: No JVD. CHEST: Equal excursion, nonlabored breathing. CARDIOVASCULAR: Regular rate and rhythm. ABDOMEN: Soft. Some mild tenderness in the right upper quadrant. No peritoneal signs. SKIN: Dry. EXTREMITIES: No cyanosis or edema. NEUROLOGIC: Alert and oriented. Moving extremities symmetrically. PSYCHIATRIC: Appropriate mood and affect. IMPRESSION: Right upper quadrant pain, nausea, question chronic cholecystitis. She had wall thickening on ultrasound and gallbladder polyp. As the upper endoscopy did not show us ulcers or other significant etiology of her symptoms, she prefers to go ahead and proceed with cholecystectomy. Shown the gallbladder pamphlet and risk sheet explained the procedure in detail including bleeding and infection; risk of bowel injury or perforation; risk of missed or nondiagnosis; risk of bile leak, bile duct injury, retained stone or sludge possibly requiring further procedure either open or ERCP; general risk of anesthesia, DVT, PE, pneumonia; risk of aches and pains, bloating, constipation, and/or loose stools possibly chronic in nature; possibility of no improvement in her symptoms possibly requiring further referrals, studies, or procedures. She understands and agrees with planned procedure. We will proceed with laparoscopic cholecystectomy, possible open, as an outpatient.
[2024-10-11] MEDS ORDERED: Sensorcaine 0.25% 10 ML ONE (08:51)
[2024-10-11] MEDS ORDERED: Sodium Chloride 0.9% 1000 ML 1,000 ML ONE (08:52)
[2024-10-11] MEDS: CEFOXITIN 2 GM/100 ML NACL IVPB 2 GM/100 ML IVPB IV ONE (08:59)
[2024-10-11] MEDS: Lactated Ringers 1,000 ML IV SCH (08:59)
[2024-10-11 09:00] LABS: HCG URINE TEST NEGATIVE (NEGATIVE)
[2024-10-11 09:09] VITALS: RESP 16
[2024-10-11] MEDS: TYLENOL EXTRA STRENGTH 500 MG PO ONE (09:18)
[2024-10-11] MEDS: celeBREX 100 MG PO ONE (09:19)
[2024-10-11] MEDS: NEURONTIN PO ONE (09:19)
[2024-10-11] MEDS ORDERED: ROCURONIUM BROMIDE IV ONE ×2 (11:07→11:50)
[2024-10-11] MEDS ORDERED: dexAMETHasone sodium phosphate ONE (11:07)
[2024-10-11] MEDS ORDERED: Zofran 4 MG/2 ML VIAL ONE (11:07)
[2024-10-11] MEDS ORDERED: propofoL IV ONE (11:07)
[2024-10-11] MEDS ORDERED: SUBLIMAZE 100 MCG/2 ML ONE ×2 (11:08→12:18)
[2024-10-11] MEDS ORDERED: Lactated Ringers 1,000 ML IV ONE (11:40)
[2024-10-11] MEDS ORDERED: ROBINUL ONE (11:50)
[2024-10-11] MEDS ORDERED: BRIDION 200MG/2ML IV ONE (11:58)
[2024-10-11] MEDS ORDERED: TORAdol 30 mg Injection ONE (11:58)
[2024-10-11] MEDS ORDERED: Hydromorphone 1 mg/ml Injection ONE (12:19)
[2024-10-11 13:33] VITALS: BP 123/87; PULSE 83; TEMP 98.2; O2SAT 96
--- NOTE | 2024-10-12 11:22 | OP ---
SURGERY DATE/TIME: 10/11/2024 [id number] PREOPERATIVE DIAGNOSES: 1) History of gallbladder polyp. 2) History of question symptomatic biliary colic, right upper quadrant pain. 3) Question early chronic cholecystitis as well as gallbladder polyp in need of cholecystectomy. POSTOPERATIVE DIAGNOSIS: Mild chronic cholecystitis. PROCEDURE: Laparoscopic cholecystectomy. SURGEON: Alden Ortega MD PASTRY SOUS CHEF: Dariel Kimbrough, MS3 ANESTHESIA: General. ESTIMATED BLOOD LOSS: Minimal. DESCRIPTION OF PROCEDURE AND FINDINGS: The patient was taken to the operating room. General anesthesia was induced. Abdomen was prepped and draped in the usual sterile fashion. After official time-out, no disagreement in planned procedure. She had supraumbilical piercing, so a transverse incision was below her navel area. Fascia grasped and pulled upward. Veress needle inserted. Tested with saline. Pneumoperitoneum accomplished, opening pressure of 0-15. An 11 mm bladeless port and camera inserted without difficulty followed by two 5 mm right upper quadrant ports, 5 mm epigastric port. Gallbladder had some mild chronic inflammation, dissected posterolateral to anterior fashion. Slowly and carefully, the cystic duct and the main cystic artery were isolated until the critical view was obtained both anteriorly and posteriorly. Once this was accomplished, cystic duct/cystic artery clipped x3 and divided in the usual fashion. The gallbladder was slowly and carefully dissected free from its dense attachments to the liver bed staying directly on the gallbladder wall. Just prior to releasing it from its final attachments from the anterior edge of the liver, the liver bed reinspected. The clips were noted to be in place in the cystic duct/cystic artery stumps. No signs of any active bleeding or bile leakage. It was felt there was no benefit from drain placement. The gallbladder was released from the final attachments to the anterior edge of the liver. It was then pulled up and out the infraumbilical 10/11 port site, decompressed of some bile, was pulled free and passed off. This fascial defect was closed with puncture closure device with #1 Vicryl. Careful inspection of the liver bed one last time. Clips noted to be in place. No signs of any active bleeding or bile leakage. P[place]all there was no benefit from drain placement. Pneumoperitoneum decompressed. Wounds irrigated out. Skin incision closed with 4-0 Vicryl. The 11 site had been closed with puncture closure device with #1 Vicryl prior to desufflating the abdomen. Wounds irrigated out. Skin incision closed with 4-0 Vicryl. 0.25% Marcaine local injected along each skin incision and fascial defect. The patient tolerated the procedure well. Findings were discussed with her out in the waiting area.
== END 2024-10-11 13:44 | disposition home or self-care (01) ==
LOC: SDC 08:32
PROVIDERS: ATTEND Surgery
DX: Z87.19 Personal history of other diseases of the digestive system (principal); K81.1 Chronic cholecystitis
CPT/HCPCS: 81025; 93005; J0694; J1100; J1171; J1885; J2405; J2704; J3010; A9270-GY

== ENCOUNTER 2025-05-30 13:53 | Observation (INO) | payer BC ==
[2025-05-30 15:02] VITALS: PULSE 90; RESP 20; TEMP 98.3; O2SAT 99
[2025-05-30 15:44] LABS: Hematocrit 37.6 % (34.1-44.9); Hemoglobin 12.6 g/dL (11.2-15.7); Mean Corpuscular Hemoglobin 29.4 pg (25.6-32.2); Mean Corpuscular Hgb Concent. 33.5 g/dL (32.2-35.5); Platelet Count 240 x10^3/uL (182-369); Red Blood Count 4.29 x10^6/uL (3.93-5.22); White Blood Count 9.3 x10^3/uL (3.98-10.04)
[2025-05-30 15:57] LABS: Calcium 8.8 mg/dL (8.4-10.2); Carbon Dioxide 23.0 mmol/L (22-30); Creatinine 1 0.6 mg/dL (0.52-1.04); EST GLOMERULAR FILTRATION RATE 123.8 ML/MIN; Glucose 71.0 mg/dL (74-106); LDH-LACTATE DEHYDROGENASE 179 U/L (120-246); Potassium 3.4 mmol/L (3.5-5.1); SGOT/AST 22.0 U/L (14-36); SGPT/ALT 16.0 U/L (0-35); Total Protein 7.7 g/dL (6.3-8.2)
[2025-05-30 15:57] LABS: Glucose, Urine Negative (Negative); Protein,Urine Dip Negative (Negative); RBC 0-2 /HPF (0-5); WBC 0-2 /HPF (0-5)
[2025-05-30 16:07] LABS: Creatinine, Urine Random 82.4 mg/dl; Protein Creatinine Ratio, Ran. 0.11 mg/mg (0.0-0.15); TP, Urine Random 9.0 mg/dl (<12)
[2025-05-30 17:05] VITALS: BP 114/74
== END 2025-05-30 16:53 | disposition home or self-care (01) ==
LOC: MED SURG 13:53 → OB 13:54
PROVIDERS: ADMIT Obstetrics & Gynecology; ATTEND Obstetrics & Gynecology
DX: Z34.82 Encounter for supervision of other normal pregnancy, second trimester (principal); Z3A.24 24 weeks gestation of pregnancy

== ENCOUNTER 2025-07-06 14:51 | Observation (INO) | payer BC ==
[2025-07-06 15:50] LABS: Hematocrit 35.5 % (34.1-44.9); Hemoglobin 11.8 g/dL (11.2-15.7); Mean Corpuscular Hemoglobin 29.3 pg (25.6-32.2); Mean Corpuscular Hgb Concent. 33.2 g/dL (32.2-35.5); Platelet Count 166 x10^3/uL (182-369); Red Blood Count 4.03 x10^6/uL (3.93-5.22); White Blood Count 7.5 x10^3/uL (3.98-10.04)
[2025-07-06 16:03] LABS: Calcium 9.1 mg/dL (8.4-10.2); Carbon Dioxide 18.0 mmol/L (22-30); Creatinine 1 0.51 mg/dL (0.52-1.04); EST GLOMERULAR FILTRATION RATE 128.7 ML/MIN; Glucose 124.0 mg/dL (74-106); LDH-LACTATE DEHYDROGENASE 167.0 U/L (120-246); Potassium 3.6 mmol/L (3.5-5.1); SGOT/AST 22.0 U/L (14-36); SGPT/ALT 16.0 U/L (0-35); Total Protein 7.3 g/dL (6.3-8.2); Uric Acid 3.2 mg/dL (2.6-6.0)
[2025-07-06 16:08] LABS: Glucose, Urine Negative (Negative); Protein,Urine Dip Negative (Negative); RBC 0-2 /HPF (0-5); WBC 0-2 /HPF (0-5)
[2025-07-06 16:21] LABS: TP, Urine Random 13.0 mg/dl (<12)
[2025-07-06 16:26] LABS: Creatinine, Urine Random 20.0 mg/dl; Protein Creatinine Ratio, Ran. 0.65 mg/mg (0.0-0.15)
[2025-07-06 17:02] VITALS: BP 136/67; PULSE 102; O2SAT 99
== END 2025-07-06 16:50 | disposition home or self-care (01) ==
LOC: WHC 14:51 → OB 15:29
PROVIDERS: ADMIT Obstetrics & Gynecology; ATTEND Obstetrics & Gynecology
DX: Z34.82 Encounter for supervision of other normal pregnancy, second trimester (principal); Z3A.30 30 weeks gestation of pregnancy
CPT/HCPCS: 36415; 59025; 59426; 80053; 81001; 81002; 82570; 83615; 84156; 84550; 85027; 99213; G0378

== ENCOUNTER 2025-07-30 10:21 | Observation (INO) | payer BC ==
[2025-07-30 11:05] LABS: AMNISURE TEST RESULTS NEGATIVE (NEGATIVE)
[2025-07-30 12:04] VITALS: PULSE 95; RESP 16; TEMP 98.5; O2SAT 100
[2025-07-30 12:08] VITALS: BP 125/71
== END 2025-07-30 11:50 | disposition home or self-care (01) ==
LOC: OB.NST 10:21 → OB 11:11
PROVIDERS: ADMIT Obstetrics & Gynecology; ATTEND Obstetrics & Gynecology
DX: Z34.83 Encounter for supervision of other normal pregnancy, third trimester (principal); Z3A.33 33 weeks gestation of pregnancy

== ENCOUNTER 2025-08-02 15:12 | Observation (INO) | payer BC ==
[2025-08-02 15:46] LABS: Glucose, Urine Negative (Negative); Protein,Urine Dip Negative (Negative); RBC 0-2 /HPF (0-5); WBC 0-2 /HPF (0-5)
[2025-08-02 15:50] LABS: BASOPHIL % 0.1 % (0.1-1.2); Basophil (Absolute #) 0.01 x10^3/uL (0.01-0.08); Eosinophil (Absolute #) 0.07 x10^3/uL (0.04-0.36); Hematocrit 34.5 % (34.1-44.9); Hemoglobin 11.6 g/dL (11.2-15.7); IMMATURE GRAN # 0.07 x10^3u/L (0.001-0.031); IMMATURE GRAN % 1.0 % (0.001-0.429); Lymphocyte (Absolute #) 0.74 x10^3/uL (1.18-3.74); Mean Corpuscular Hemoglobin 28.6 pg (25.6-32.2); Mean Corpuscular Hgb Concent. 33.6 g/dL (32.2-35.5); Monocyte (Absolute #) 0.69 x10^3/uL (0.24-0.86); NUCLEATED RBC # 0.00 x10^3u/L (0.00-0.012); NUCLEATED RBC % 0.0 % (0.00-0.2); Platelet Count 162 x10^3/uL (182-369); Red Blood Count 4.06 x10^6/uL (3.93-5.22); White Blood Count 6.8 x10^3/uL (3.98-10.04)
[2025-08-02 16:01] LABS: Creatinine, Urine Random 94.1 mg/dl; Protein Creatinine Ratio, Ran. 0.1 mg/mg (0.0-0.15); TP, Urine Random 9.0 mg/dl (<12)
[2025-08-02 16:16] VITALS: PULSE 90; RESP 16; TEMP 97.8; O2SAT 99
[2025-08-02 16:27] VITALS: BP 130/82
[2025-08-02 16:40] LABS: Calcium 9.9 mg/dL (8.4-10.2); Carbon Dioxide 19.0 mmol/L (22-30); Creatinine 1 0.56 mg/dL (0.52-1.04); EST GLOMERULAR FILTRATION RATE 125.8 ML/MIN; Glucose 83.0 mg/dL (74-106); LDH-LACTATE DEHYDROGENASE 194.0 U/L (120-246); Potassium 3.9 mmol/L (3.5-5.1); SGOT/AST 26.0 U/L (14-36); SGPT/ALT 19.0 U/L (0-35); Total Protein 7.4 g/dL (6.3-8.2); Uric Acid 3.2 mg/dL (2.6-6.0)
== END 2025-08-02 16:55 | disposition home or self-care (01) ==
LOC: OB 15:13
PROVIDERS: ADMIT Obstetrics & Gynecology; ATTEND Obstetrics & Gynecology
DX: Z34.83 Encounter for supervision of other normal pregnancy, third trimester (principal); Z3A.34 34 weeks gestation of pregnancy